=== PATIENT | female | born 1990 | race African-American/Black ===

== ENCOUNTER 2019-03-24 15:48 | Inpatient (IN) | payer OTHER ==
[2019-03-24 19:42] VITALS: BMI 23.8
--- NOTE | 2019-03-24 21:24 | HP ---
COWS - Scale Resting Pulse: 0= [place] 80 or Below Sweatin= Chills/Flushing Restless Observation: 0= Sits Still Pupil Size: 1= Pupils >than Normal Bone or Joint Aches: 4=Acute Joint/Muscle Pain Runny Nose/ Eye Tearin= Runny Nose/Eyes GI Upset > 30mins: 3= Vomiting/Diarrhea (no vomiting, diarrhea x 3) Tremor Observation: 2= Slight Tremor Visible Yawning Observation: 1= 1-2x During Session Anxiety or Irritability: 2=Irritable/Anxious Goose Flesh Skin: 3=Piloerection COWS Score: 19 CIWA Score - Admission Criteria OASAS Guidelines: Admission for Medically Managed Detox: Requires at least one of the followin. CIWA greater than 12 2. Seizures within the past 24 hours 3. Delirium tremens within the past 24 hours 4. Hallucinations within the past 24 hours 5. Acute intervention needed for co occurring medical disorder 6. Acute intervention needed for co occurring psychiatric disorder 7. Severe withdrawal that cannot be handled at a lower level of care (continued vomiting, continued diarrhea, abnormal vital signs) requiring intravenous medication and/or fluids 8. Admission [facility] Chief Complaint: Heroin withdrawal symptoms Allergies/Adverse Reactions: Allergies Allergy/AdvReac Type Severity Reaction Status Date / Time [place] And Derivatives Allergy Intermediate Swelling Verified 02/13/16 20:38 mushroom Allergy Intermediate Hives Verified 02/13/16 20:38 History of Present Illness: 28 years old female with 2 years of heroin dependence is seeking admission to detox. Patient has been in multiple detox programs, last at Counts include 234 beds at the [facility]. She has medical history of Seizures, anemia, depression and anxiety. she reports suicide attempt at age 25 years and denies suicidal ideation at this time - Ebola screening Have you traveled outside of the country in the last 21 days: No (N) Have you had contact with anyone from an Ebola affected area: No Do you have a fever: No - Review of Systems Constitutional: Chills, Loss of Appetite, Changes in sleep EENT: reports: Sinus Pressure Respiratory: reports: No Symptoms reported Cardiac: reports: No Symptoms Reported GI: reports: Diarrhea, Nausea, Poor Appetite, Poor Fluid Intake, Vomiting, Abdominal cramping : reports: No Symptoms Reported Musculoskeletal: reports: Back Pain, Joint Pain, Muscle Pain Integumentary: reports: Dryness, Flushing Neuro: reports: Headache, Tremors Endocrine: reports: No Symptoms Reported Hematology: reports: No Symptoms Reported Psychiatric: reports: No Sypmtoms Reported, Anxious, Depressed Other Systems: Reviewed and Negative Patient History - Patient Medical History Hx Anemia: Yes (Not on medication) Hx Asthma: No Hx Chronic Obstructive Pulmonary Disease (COPD): No Hx Cancer: No Hx Cardiac Disorders: No Hx Congestive Heart Failure: No Hx Hypertension: No Hx Hypercholesterolemia: No Hx Pacemaker: No HX Cerebrovascular Accident: No Hx Seizures: Yes (last episode 2 days ago- Keppra, Dilantin, Gabapentin) Hx Dementia: No Hx Diabetes: No Hx Gastrointestinal Disorders: No Hx Liver Disease: No Hx Genitourinary Disorders: No Hx Sexually Transmitted Disorders: No Hx Renal Disease (ESRD): No Hx Thyroid Disease: No Hx Human Immunodeficiency Virus (HIV): No Hx Hepatitis C: No Hx Depression: Yes (Not on medication ) Hx Suicide Attempt: Yes (cut wrist yesterday. Denies suicidal ideation at this t8ime) Hx Bipolar Disorder: Yes (Not on mjedication) Hx Schizophrenia: No Other Medical History: Anxiety -Not on medication - Patient Surgical History Past Surgical History: Yes Hx Neurologic Surgery: No Hx Cataract Extraction: No Hx Cardiac Surgery: No Hx Lung Surgery: No Hx Breast Surgery: No Hx Breast Biopsy: No Hx Abdominal Surgery: No Hx Appendectomy: No Hx Cholecystectomy: No Hx Genitourinary Surgery: No Hx Section: No Hx Orthopedic Surgery: Yes (right shoulder and back) Hx Hysterectomy: No Anesthesia Reaction: No - PPD History Previous Implant?: Yes Documented Results: Negative w/proof Implanted On Prior [facility] Admission?: Yes Date: 02/15/16 PPD to be Administered?: Yes - Reproductive History Patient is a Female of Child Bearing Age (11 -55 yrs old): Yes Last Menstrual Period: 02/28/19 Patient : No - Smoking Cessation Smoking history: Current every day smoker Have you smoked in the past 12 months: Yes Aproximately how many cigarettes per day: 10 Hx Chewing Tobacco Use: No Initiated information on smoking cessation: Yes 'Breaking Loose' booklet given: 03/24/19 - Substance & Tx. History Hx Alcohol Use: No Hx Substance Use: Yes Substance Use Type: Cocaine, Heroin, Marijuana, Opiates - Substances abused Other Other (specify): percocet Substance route: Oral Frequency: Daily Amount used: 5 tab of 10 mg Age of first use: 17 Date of last use: 03/23/19 Heroin Other (specify): sniff Frequency: Daily Amount used: 1 to2 Age of first use: 26 Date of last use: 03/23/19 Alcohol Substance route: Oral Frequency: Daily Amount used: 1 beer Age of first use: 15 Date of last use: 03/23/19 Family Disease History - Family Disease History Family Disease History: Diabetes: Grandparent (asthma), Heart Disease: Grandparent, Father (asthma), Mother, Respiratory: Grandparent, Father Admission Physical Exam [facility] - Vital Signs Vital Signs: Vital Signs - 24 hr 03/24/19 19:27 Temperature 98.1 F Pulse Rate 64 Respiratory 19 Rate Blood Pressure 139/84 - Physical General Appearance: Yes: Moderate Distress, Tremorous, Irritable, Anxious HEENTM: Yes: Normal ENT Inspection Respiratory: Yes: Lungs Clear, Normal Breath Sounds, No Respiratory Distress Neck: Yes: Supple Breast: Yes: Breast Exam Deferred Cardiology: Yes: Regular Rhythm, Regular Rate Abdominal: Yes: Normal Bowel Sounds, Soft Genitourinary: Yes: Within Normal Limits Back: Yes: Normal Inspection Musculoskeletal: Yes: Back pain, Muscle Pain Extremities: Yes: Tremors Neurological: Yes: Alert, Normal Mood/Affect Integumentary: Yes: Warm Lymphatic: Yes: Within Normal Limits - Diagnostic (1) Seizures Current Visit: Yes Status: Chronic (2) Nicotine dependence Current Visit: No Status: Chronic Qualifiers: Nicotine product type: cigarettes Substance use status: uncomplicated Qualified Code(s): F17.210 - Nicotine dependence, cigarettes, uncomplicated (3) Opioid dependence with withdrawal Current Visit: Yes Status: Chronic (4) Anemia Current Visit: Yes Status: Acute Qualifiers: Anemia type: iron deficiency (5) Depression Current Visit: Yes Status: Chronic Qualifiers: Depression Type: unspecified Qualified Code(s): F32.9 - Major depressive disorder, single episode, unspecified (6) Anxiety Current Visit: Yes Status: Acute Cleared for Admission [facility] - Detox or Rehab [facility] Level of Care: Medically Managed Detox Regimen/Protocol: Methadone Breathalyzer - Breathalyzer Breathalyzer: 0 Urine Drug Screen - Test Device Lot number: [id number] Expiration date: 12/12/20 - Control Is test valid?: Yes - Results Drug screen NEGATIVE: No Urine drug screen results: THC-Marijuana, FEN-Fentanyl, MOP-Opiates, OXY- Oxycodone, MTD-Methadone Inpatient Rehab Admission - Rehab Decision to Admit Inpatient rehab admission?: No
[2019-03-24] MEDS ORDERED: cloNIDine HCL 0.1 MG TABLET PO PRN (21:36)
[2019-03-24] MEDS ORDERED: IBUPROFEN 400 MG TABLET (FP) PO PRN (21:36)
[2019-03-24] MEDS ORDERED: ACETAMINOPHEN 325 MG TABLET (FP) PO PRN ×2 (21:36)
[2019-03-24] MEDS ORDERED: hydrOXYzine PAMOATE 25 MG CAPSULE (FP) PO PRN (21:36)
[2019-03-24] MEDS ORDERED: METHOCARBAMOL 500 MG TABLET PO PRN (21:36)
[2019-03-24] MEDS ORDERED: MAGNESIUM HYDROX 2400MG/30ML ORAL SUSPENSION 30 ML CUP PO PRN (21:36)
[2019-03-24] MEDS ORDERED: MAG HYDROX/AL HYDROX/SIMETH 30 ML UNIT-DOSE CUP PO PRN (21:36)
[2019-03-24] MEDS ORDERED: BISMUTH SUBSALICYLATE 524 MG/30 ML UD PO PRN (21:36)
[2019-03-24] MEDS ORDERED: MAGNESIUM CITRATE 300 ML BOTTLE PO PRN (21:36)
[2019-03-24] MEDS ORDERED: MENTHOL/PHENOL 1 EACH UD MM PRN (21:36)
[2019-03-24] MEDS ORDERED: METHADONE HCL 10 MG TABLET (FOR DETOX USE ONLY) PO ONE (22:15)
[2019-03-24] MEDS: GABAPENTIN 400 MG CAPSULE (FP) PO SCH (22:46)
[2019-03-24] MEDS: PHENYTOIN NA EXTENDED 100 MG CAPSULE (FP) PO SCH (22:46)
[2019-03-24] MEDS: THIAMINE HCL 100 MG TABLET (FP) PO SCH (22:47)
[2019-03-24] MEDS: NICOTINE POLACRILEX 2 MG GUM BUC PRN (23:37)
[2019-03-25] MEDS: GABAPENTIN 400 MG CAPSULE (FP) PO SCH ×3 (06:53→22:03)
[2019-03-25] MEDS ORDERED: METHADONE HCL 5 MG TABLET (FOR DETOX USE ONLY) ONE (09:18)
[2019-03-25] MEDS ORDERED: METHADONE HCL 10 MG TABLET (FOR DETOX USE ONLY) ONE (09:18)
[2019-03-25] MEDS ORDERED: METHADONE (DETOX) 20 MG, METHADONE (DETOX) 5 MG PO ONE (10:00)
[2019-03-25] MEDS: PHENYTOIN NA EXTENDED 100 MG CAPSULE (FP) PO SCH ×2 (10:37→22:03)
[2019-03-25] MEDS: PRENATAL VITAMINS W/ FOLIC ACID TABLET (FP) PO SCH (10:38)
[2019-03-25] MEDS: NICOTINE 14 MG/24 HOURS TOPICAL PATCH TD SCH (10:39)
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
--- NOTE | 2019-03-25 11:34 | EKG ---
Test Reason : Blood Pressure : / mmHG Vent. Rate : 041 BPM Atrial Rate : 041 BPM P-R Int : 134 ms QRS Dur : 086 ms QT Int : 452 ms P-R-T Axes : 068 037 -10 degrees QTc Int : 372 ms MARKED SINUS BRADYCARDIA T WAVE ABNORMALITY, CONSIDER ANTERIOR ISCHEMIA ABNORMAL ECG NO PREVIOUS ECGS AVAILABLE Confirmed by QAMAR DEE MD ([id number]) on 03/25/2019 11:34:02 AM Referred By: Confirmed By:QAMAR DEE MD
--- NOTE | 2019-03-25 11:43 | PN ---
[facility] COWS - Scale Resting Pulse: 0= [place] 80 or Below Sweatin=Flushed/Facial Moisture Restless Observation: 1= Difficult to Sit Still Pupil Size: 0= Normal to Room Light Bone or Joint Aches: 2= Severe Diffuse Aches Runny Nose/ Eye Tearin= Nasal Congestion GI Upset > 30mins: 1= Stomach Cramp Tremor Observation of Outstretched Hands: 2= Slight Tremor Visible Yawning Observation: 2= >3x During Session Anxiety or Irritability: 2=Irritable/Anxious Goose Flesh Skin: 0=Smooth Skin COWS Score: 13 [facility] Progress Note (SOAP) Subjective: chills sweats body aches interrupted sleep shakes anxiety Objective: 03/25/19 11:42 Vital Signs Temperature 98.2 F 03/25/19 09:45 Pulse Rate 57 L 03/25/19 09:45 Respiratory Rate 18 03/25/19 09:45 Blood Pressure 133/83 03/25/19 09:45 O2 Sat by Pulse Oximetry (%) Laboratory Tests 03/24/19 20:47 POC Urine HCG, Qual Negative pending labs aaox3 ambulating no acute distress Assessment: 03/25/19 11:43 withdrawal sx Plan: continue detox increase fluids pending labs
[2019-03-25 12:32] LABS: HEMOGLOBIN 11.5 GM/dL (10.7-15.3); MCH 26.5 pg (25.7-33.7); MCHC 32.8 g/dl (32.0-36.0); MEAN CELL VOLUME 80.9 fl (80-96); MEAN PLT VOLUME 8.7 fl (7.5-11.1); PLATELET COUNT 340 K/MM3 (134-434); RBC 4.33 M/mm3 (3.60-5.2); RDW 14.5 % (11.6-15.6); WHITE BLOOD COUNT 7.2 K/mm3 (4.0-10.0)
[2019-03-25 12:43] LABS: ALBUMIN 3.8 g/dl (3.4-5.0); BILIRUBIN,TOTAL 0.4 mg/dL (0.2-1); BLOOD UREA NITROGEN 4.2 mg/dL (7-18); CALCIUM 9.3 mg/dL (8.5-10.1); CREATININE 0.6 mg/dL (0.55-1.3); POTASSIUM 3.6 mmol/L (3.5-5.1); TOT PROT 7.3 g/dl (6.4-8.2)
[2019-03-25] MEDS: levETIRAcetam XR 500 MG TAB PO SCH (12:55)
[2019-03-25] MEDS: diazePAM 5 MG TABLET PO PRN ×3 (15:11→23:49)
[2019-03-25] MEDS ORDERED: SUVOREXANT 10 MG TABLET PO PRN (22:00)
[2019-03-25] MEDS: THIAMINE HCL 100 MG TABLET (FP) PO SCH (22:03)
[2019-03-25] MEDS: MELATONIN 5 MG TABLETS PO PRN (22:05)
[2019-03-26] MEDS: GABAPENTIN 400 MG CAPSULE (FP) PO SCH ×3 (07:02→22:20)
[2019-03-26] MEDS ORDERED: METHADONE HCL 10 MG TABLET (FOR DETOX USE ONLY) PO ONE (10:00)
[2019-03-26] MEDS: levETIRAcetam XR 500 MG TAB PO SCH (10:06)
[2019-03-26] MEDS: PHENYTOIN NA EXTENDED 100 MG CAPSULE (FP) PO SCH ×2 (10:06→22:20)
[2019-03-26] MEDS: NICOTINE 14 MG/24 HOURS TOPICAL PATCH TD SCH (10:07)
[2019-03-26] MEDS: PRENATAL VITAMINS W/ FOLIC ACID TABLET (FP) PO SCH (10:07)
[2019-03-26] MEDS: diazePAM 5 MG TABLET PO PRN ×2 (10:39→22:19)
--- NOTE | 2019-03-26 11:14 | PN ---
B[facility] Progress Note Note: Patient reports sleeping poorly despite taking Belsomra 10 mg at bedtime. Will increase medication dosage to 15 mg/hs
--- NOTE | 2019-03-26 13:22 | PN ---
[facility] COWS - Scale Resting Pulse: 0= [place] 80 or Below Sweatin= Chills/Flushing Restless Observation: 1= Difficult to Sit Still Pupil Size: 0= Normal to Room Light Bone or Joint Aches: 2= Severe Diffuse Aches Runny Nose/ Eye Tearin= Nasal Congestion GI Upset > 30mins: 0= None Tremor Observation of Outstretched Hands: 1= Tremor [place], Not Seen Yawning Observation: 1= 1-2x During Session Anxiety or Irritability: 1=Feels Anxious/Irritable Goose Flesh Skin: 0=Smooth Skin COWS Score: 8 [facility] Progress Note (SOAP) Subjective: little sweats little shakes feeling better anxiety Objective: 03/26/19 13:22 Vital Signs Temperature 98.1 F 03/26/19 09:37 Pulse Rate 61 03/26/19 09:37 Respiratory Rate 18 03/26/19 09:37 Blood Pressure 110/81 03/26/19 09:37 O2 Sat by Pulse Oximetry (%) Laboratory Tests 03/24/19 03/25/19 03/25/19 20:47 09:00 09:00 WBC 7.2 RBC 4.33 Hgb 11.5 Hct 35.0 MCV 80.9 MCH 26.5 MCHC 32.8 RDW 14.5 Plt Count 340 MPV 8.7 D Sodium Potassium Chloride Carbon Dioxide Anion Gap BUN Creatinine Est GFR (CKD-EPI)AfAm Est GFR (CKD-EPI)NonAf Random Glucose Calcium Total Bilirubin AST ALT Alkaline Phosphatase Total Protein Albumin POC Urine HCG, Qual Negative Phenytoin 2.6 RPR Titer HIV 1&2 Antibody Screen HIV P24 Antigen 03/25/19 03/25/19 03/25/19 09:00 09:00 09:00 WBC RBC Hgb Hct MCV MCH MCHC RDW Plt Count MPV Sodium 139 Potassium 3.6 Chloride 101 Carbon Dioxide 31 Anion Gap 8 BUN 4.2 L Creatinine 0.6 Est GFR (CKD-EPI)AfAm 141.76 Est GFR (CKD-EPI)NonAf 122.31 Random Glucose 74 Calcium 9.3 Total Bilirubin 0.4 AST 13 L ALT 12 L Alkaline Phosphatase 62 Total Protein 7.3 Albumin 3.8 POC Urine HCG, Qual Phenytoin RPR Titer Nonreactive HIV 1&2 Antibody Screen Negative HIV P24 Antigen Negative labs noted aaox3 ambulating no acute distress Assessment: 03/26/19 13:22 withdrawals Plan: continue detox increase fluids
[2019-03-26] MEDS: SUVOREXANT 15 MG TABLET PO PRN (22:18)
[2019-03-26] MEDS: THIAMINE HCL 100 MG TABLET (FP) PO SCH (22:20)
[2019-03-27] MEDS: GABAPENTIN 400 MG CAPSULE (FP) PO SCH ×3 (06:44→22:29)
[2019-03-27] MEDS ORDERED: METHADONE HCL 10 MG TABLET (FOR DETOX USE ONLY) ONE (09:17)
[2019-03-27] MEDS ORDERED: METHADONE HCL 5 MG TABLET (FOR DETOX USE ONLY) ONE (09:18)
[2019-03-27] MEDS ORDERED: METHADONE (DETOX) 10 MG, METHADONE (DETOX) 5 MG PO ONE (10:00)
[2019-03-27] MEDS: PRENATAL VITAMINS W/ FOLIC ACID TABLET (FP) PO SCH (10:09)
[2019-03-27] MEDS: levETIRAcetam XR 500 MG TAB PO SCH (10:10)
[2019-03-27] MEDS: PHENYTOIN NA EXTENDED 100 MG CAPSULE (FP) PO SCH ×2 (10:10→22:29)
[2019-03-27] MEDS: NICOTINE 14 MG/24 HOURS TOPICAL PATCH TD SCH (10:10)
[2019-03-27] MEDS: NICOTINE POLACRILEX 2 MG GUM BUC PRN ×2 (10:10→22:40)
[2019-03-27] MEDS: diazePAM 5 MG TABLET PO PRN ×4 (10:12→22:30)
--- NOTE | 2019-03-27 13:56 | PN ---
BHS COWS - Scale Resting Pulse: 0= [place] 80 or Below Sweatin= Chills/Flushing Restless Observation: 1= Difficult to Sit Still Pupil Size: 0= Normal to Room Light Bone or Joint Aches: 1= Mild Discomfort Runny Nose/ Eye Tearin= None GI Upset > 30mins: 0= None Tremor Observation of Outstretched Hands: 1= Tremor [place], Not Seen Yawning Observation: 1= 1-2x During Session Anxiety or Irritability: 1=Feels Anxious/Irritable Goose Flesh Skin: 0=Smooth Skin COWS Score: 6 [facility] Progress Note (SOAP) Subjective: sweats anxiety Objective: 03/27/19 13:55 Vital Signs Temperature 97.3 F L 03/27/19 09:42 Pulse Rate 68 03/27/19 09:42 Respiratory Rate 17 03/27/19 09:42 Blood Pressure 105/80 03/27/19 09:42 O2 Sat by Pulse Oximetry (%) aaox3 ambulating no acute distress Assessment: 03/27/19 13:56 mild withdrawals Plan: continue detox
[2019-03-27] MEDS: THIAMINE HCL 100 MG TABLET (FP) PO SCH (22:29)
[2019-03-27] MEDS: MELATONIN 5 MG TABLETS PO PRN (22:32)
[2019-03-28] MEDS: GABAPENTIN 400 MG CAPSULE (FP) PO SCH ×3 (06:29→22:37)
[2019-03-28] MEDS: diazePAM 5 MG TABLET PO PRN ×2 (06:30→10:42)
[2019-03-28] MEDS ORDERED: METHADONE HCL 10 MG TABLET (FOR DETOX USE ONLY) PO ONE (10:00)
[2019-03-28] MEDS: PHENYTOIN NA EXTENDED 100 MG CAPSULE (FP) PO SCH ×2 (10:41→22:37)
[2019-03-28] MEDS: levETIRAcetam XR 500 MG TAB PO SCH (10:41)
[2019-03-28] MEDS: PRENATAL VITAMINS W/ FOLIC ACID TABLET (FP) PO SCH (10:41)
[2019-03-28] MEDS: NICOTINE 14 MG/24 HOURS TOPICAL PATCH TD SCH (10:42)
[2019-03-28] MEDS: NICOTINE POLACRILEX 2 MG GUM BUC PRN (10:42)
--- NOTE | 2019-03-28 13:19 | PN ---
S COWS - Scale Resting Pulse: 0= [place] 80 or Below Sweatin= No chills or Flushing Restless Observation: 1= Difficult to Sit Still Pupil Size: 0= Normal to Room Light Bone or Joint Aches: 0= None Runny Nose/ Eye Tearin= None GI Upset > 30mins: 0= None Tremor Observation of Outstretched Hands: 0= None Yawning Observation: 1= 1-2x During Session Anxiety or Irritability: 2=Irritable/Anxious Goose Flesh Skin: 0=Smooth Skin COWS Score: 4 [facility] Progress Note (SOAP) Subjective: c/o anxiety and mild chills. Objective: 03/28/19 13:21 Vital Signs 03/28/19 03/28/19 07:35 09:28 Temperature 97.7 F 97.9 F Pulse Rate 54 L 53 L Respiratory 18 18 Rate Blood Pressure 101/79 105/64 Lab Results WBC 7.2 K/mm3 (4.0-10.0) 03/25/19 09:00 RBC 4.33 M/mm3 (3.60-5.2) 03/25/19 09:00 Hgb 11.5 GM/dL (10.7-15.3) 03/25/19 09:00 Hct 35.0 % (32.4-45.2) 03/25/19 09:00 MCV 80.9 fl (80-96) 03/25/19 09:00 MCHC 32.8 g/dl (32.0-36.0) 03/25/19 09:00 RDW 14.5 % (11.6-15.6) 03/25/19 09:00 Plt Count 340 K/MM3 (134-434) 03/25/19 09:00 Sodium 139 mmol/L (136-145) 03/25/19 09:00 Potassium 3.6 mmol/L (3.5-5.1) 03/25/19 09:00 Chloride 101 mmol/L (98-107) 03/25/19 09:00 Carbon Dioxide 31 mmol/L (21-32) 03/25/19 09:00 Anion Gap 8 MMOL/L (8-16) 03/25/19 09:00 BUN 4.2 mg/dL (7-18) L 03/25/19 09:00 Creatinine 0.6 mg/dL (0.55-1.3) 03/25/19 09:00 Random Glucose 74 mg/dL (74-106) 03/25/19 09:00 Calcium 9.3 mg/dL (8.5-10.1) 03/25/19 09:00 Labs noted. Assessment: 03/28/19 13:22 AOX3, in no acute respiratory distress. Full ROM, ambulating in the unit. mild withdrawal symptoms. 03/28/19 13:22 Plan: continue detox.
[2019-03-28] MEDS: SUVOREXANT 15 MG TABLET PO PRN (22:37)
[2019-03-28] MEDS: THIAMINE HCL 100 MG TABLET (FP) PO SCH (22:38)
[2019-03-29] MEDS: GABAPENTIN 400 MG CAPSULE (FP) PO SCH (06:00)
[2019-03-29] MEDS ORDERED: METHADONE HCL 5 MG TABLET (FOR DETOX USE ONLY) PO ONE (06:00)
[2019-03-29] MEDS: NICOTINE POLACRILEX 2 MG GUM BUC PRN (06:02)
[2019-03-29 08:25] VITALS: BP 90/51; PULSE 52; TEMP 97.9
--- NOTE | 2019-03-29 13:23 | DS ---
[facility] Detox Discharge Summary Admission Date: 03/24/19 Discharge Date: 03/29/19 - History Present History: Opioid Dependence - Physical Exam Results Vital Signs: Vital Signs Temperature 97.9 F 03/29/19 08:25 Pulse Rate 52 L 03/29/19 08:25 Respiratory Rate 17 03/29/19 08:25 Blood Pressure 90/51 L 03/29/19 08:25 O2 Sat by Pulse Oximetry (%) Pertinent Admission Physical Exam Findings: alert and oriented x 3 skin warm and dry +perrla, eoms intact bl neck supple no jvd ext full rom, amb ad charles - Treatment Hospital Course: Detox Protocol Followed, Detoxed Safely, Responded well, Discharged Condition Good, Rehab Referral Accepted Patient has Accepted a Rehab Referral to: [facility] - Medication Discharge Medications: Ambulatory Orders Gabapentin [Neurontin -] 800 mg PO Q8H 02/13/16 levETIRAcetam [Keppra Xr -] 1,000 mg PO DAILY 02/13/16 Phenytoin Na Extended [Dilantin -] 100 mg PO BID 03/24/19 - AMA Did Patient Leave Against Medical Advice: No
== END 2019-03-29 08:50 | disposition home or self-care (01) | DRG 773 ==
LOC: YASAS 15:48 → Y6N 22:03
PROVIDERS: ADMIT Surgery; ATTEND Surgery
PROC: HZ2ZZZZ Detoxification Services for Substance Abuse Treatment (ICD-10-PCS; principal; 2019-03-24)
DX: F11.23 Opioid dependence with withdrawal (principal); F17.210 Nicotine dependence, cigarettes, uncomplicated; F19.24 Other psychoactive substance dependence with psychoactive substance-induced mood disorder; F19.282 Other psychoactive substance dependence with psychoactive substance-induced sleep disorder; F41.9 Anxiety disorder, unspecified; F32.9 Major depressive disorder, single episode, unspecified; G40.909 Epilepsy, unspecified, not intractable, without status epilepticus
CPT/HCPCS: 36415; 80053; 80177; 80185; 81025; 85027; 86480; 86593; 87389; 93005; 93010

== ENCOUNTER 2019-04-13 16:04 | Inpatient (IN) | payer OTHER ==
[2019-04-13 17:44] VITALS: BMI 23.6
--- NOTE | 2019-04-13 19:39 | HP ---
COWS - Scale Resting Pulse: 0= [place] 80 or Below Sweatin=Flushed/Facial Moisture Restless Observation: 3= Extraneous Movement Pupil Size: 2= Moderately Dilated (Pupils = 5 mm) Bone or Joint Aches: 0= None Runny Nose/ Eye Tearin= Nasal Congestion GI Upset > 30mins: 0= None Tremor Observation: 2= Slight Tremor Visible Yawning Observation: 1= 1-2x During Session Anxiety or Irritability: 2=Irritable/Anxious Goose Flesh Skin: 0=Smooth Skin COWS Score: 13 CIWA Score - Admission Criteria OAS Guidelines: Admission for Medically Managed Detox: Requires at least one of the followin. CIWA greater than 12 2. Seizures within the past 24 hours 3. Delirium tremens within the past 24 hours 4. Hallucinations within the past 24 hours 5. Acute intervention needed for co occurring medical disorder 6. Acute intervention needed for co occurring psychiatric disorder 7. Severe withdrawal that cannot be handled at a lower level of care (continued vomiting, continued diarrhea, abnormal vital signs) requiring intravenous medication and/or fluids 8. Admitting History and Physical - Past Medical History ...LMP: 02/28/19 - Smoking History Smoking history: Current every day smoker Have you smoked in the past 12 months: Yes Aproximately how many cigarettes per day: 10 - Alcohol/Substance Use Hx Alcohol Use: No Admission ROS [facility] [employer] [facility] Chief Complaint: "Having withdrawals from opiates. I need detox and rehab" Allergies/Adverse Reactions: Allergies Allergy/AdvReac Type Severity Reaction Status Date / Time Schley And Derivatives Allergy Intermediate Swelling Verified 04/13/19 17:33 mushroom Allergy Intermediate Hives Verified 04/13/19 17:33 History of Present Illness: 28 yo presents w/ alcohol and opioid withdrawal seeking detox and then rehab. Discharged from detox 15 days ago and relapses while waiting to get into a rehab. UTox: THC/CAROL/FEN/MOP/OXY/ GUEVARA: 0.0 HCG: Neg TB Gold (QFT) 03/25/19 - neg RPR 03/25/19 - neg EKG 911/ - Reviewed. Hx: seizures - last 1 week ago. Denies blackouts or overdoses. Alcohol use began at age 15. Current use is 1 - 12 oz beer daily Heroin use began at age 24. Current use is 4-5 bags daily. Illicit Percocet use began at age 15. Currently taking minimum 12 tabs of - 10 mg pills daily. Cocaine use began at age [age]. Current use is approx 3-4 days/week. Marijuana use began at age 14. Current use daily. Nicotine use began at age 18. Smokes approx 2-5 cig/day. PMHx: Epilepsy, heart murmur MHHx: Anxiety, Depression. Denies thoughts of harming self or others. SHx: Lives w/ a friend. Unemployed. Patient Name: Jaimie Gifford Date: 1990 Address: [address] [place], [place] [id number] [place] [id number] Sex: Female Rx Written Rx Dispensed Drug Quantity Days Supply Prescriber Name 04/23/2018 04/29/2018 oxycodone-acetaminophen 5-325 mg tab 90 30 Chaitanya Laurent M Search Terms: Jaimie Gifford, 1990 Search Date: 04/13/2019 07:45:44 PM States Searched: [place], [place], [place], [place], [place], [place], [place] The Drug Utilization Report below displays the controlled substance prescriptions, if any, that were dispensed in the indicated state(s). The information displayed on this report is compiled from requests submitted to other states' PMPs, and accurately reflects the information as returned by them. Blank strong indicate data not provided by other state. This report was requested by: Funmilayo Boles | Reference #: [id number] There are no results for the search terms that you entered. Exam Limitations: No Limitations - Ebola screening Have you traveled outside of the country in the last 21 days: No Have you had contact with anyone from an Ebola affected area: No Have you been sick,other than usual withdrawal symptoms: No Do you have a fever: No - Review of Systems Constitutional: Chills, Diaphoresis, Changes in sleep (Difficulty falling and staying asleep) EENT: reports: Nose Congestion Respiratory: reports: No Symptoms reported Cardiac: reports: Other (hx: murmur) GI: reports: No Symptoms Reported : reports: No Symptoms Reported Musculoskeletal: reports: Back Pain (Chronic low back pain - pain increases when cold. Denies pain at this time.) Integumentary: reports: No Symptoms Reported Neuro: reports: Seizure Endocrine: reports: Increased Thirst Hematology: reports: No Symptoms Reported Psychiatric: reports: Judgement Intact, Orientated x3, Anxious, Depressed ( Denies thoughts of harming self or others.) Patient History - Patient Medical History Hx Anemia: Yes (Not on medication) Hx Asthma: No Hx Chronic Obstructive Pulmonary Disease (COPD): No Hx Cancer: No Hx Cardiac Disorders: No Hx Congestive Heart Failure: No Hx Hypertension: No Hx Hypercholesterolemia: No Hx Pacemaker: No HX Cerebrovascular Accident: No Hx Seizures: Yes (last episode 2 days ago- Keppra, Dilantin, Gabapentin) Hx Dementia: No Hx Diabetes: No Hx Gastrointestinal Disorders: No Hx Liver Disease: No Hx Genitourinary Disorders: No Hx Sexually Transmitted Disorders: No Hx Renal Disease (ESRD): No Hx Thyroid Disease: No Hx Human Immunodeficiency Virus (HIV): No Hx Hepatitis C: No Hx Depression: Yes (Not on medication ) Hx Suicide Attempt: Yes (cut wrist yesterday. Denies suicidal ideation at this t8ime) Hx Bipolar Disorder: Yes (Not on mjedication) Hx Schizophrenia: No - Patient Surgical History Past Surgical History: Yes Hx Neurologic Surgery: No Hx Cataract Extraction: No Hx Cardiac Surgery: No Hx Lung Surgery: No Hx Breast Surgery: No Hx Breast Biopsy: No Hx Abdominal Surgery: No Hx Appendectomy: No Hx Cholecystectomy: No Hx Genitourinary Surgery: No Hx Section: No Hx Orthopedic Surgery: Yes (right shoulder and back) Hx Hysterectomy: No Anesthesia Reaction: No - PPD History Previous Implant?: No (TB Gold (QFT) 03/25/19) Documented Results: Negative w/proof Implanted On Prior [facility] Admission?: Yes Date: 03/25/19 (TB Gold (QFT)) PPD to be Administered?: No - Reproductive History Patient is a Female of Child Bearing Age (11 -55 yrs old): Yes Last Menstrual Period: 03/29/19 Patient : No - Smoking Cessation Smoking history: Current every day smoker Have you smoked in the past 12 months: Yes Aproximately how many cigarettes per day: 5 Hx Chewing Tobacco Use: No Initiated information on smoking cessation: Yes 'Breaking Loose' booklet given: 04/13/19 - Substance & Tx. History Hx Alcohol Use: Yes Hx Substance Use: Yes Substance Use Type: Alcohol, Cocaine, Heroin, Marijuana, Opiates Hx Substance Use Treatment: Yes (detox, rehab) - Substances abused Other Other (specify): percocet Substance route: Oral Frequency: Daily Amount used: 5 tab of 10 mg Age of first use: 17 Date of last use: 04/12/19 Heroin Other (specify): sniff Frequency: Daily Amount used: 1 to2 Age of first use: 26 Date of last use: 04/13/19 Alcohol Substance route: Oral Frequency: Daily Amount used: 1 beer Age of first use: 15 Date of last use: 04/12/19 Admission Physical Exam [facility] - Vital Signs Vital Signs: Vital Signs - 24 hr 04/13/19 17:35 Temperature 98.1 F Pulse Rate 68 Respiratory 18 Rate Blood Pressure 135/93 - Physical General Appearance: Yes: Nourished, Mild Distress, Tremorous, Sweating ( Increased facial mositure), Anxious HEENTM: Yes: EOMI, Hearing grossly Normal, Normocephalic, Normal Voice, NANCI ( Pupils = 5 mm), Pharynx Normal, Tm's normal Respiratory: Yes: Lungs Clear (PUlse ox = 99 %), Normal Breath Sounds, No Respiratory Distress Neck: Yes: No masses,lesions,Nodules, Supple Breast: Yes: Breast Exam Deferred Cardiology: Yes: Regular Rhythm, S1, S2, Bradycardia Abdominal: Yes: Non Tender, Flat, Soft, Increased Bowel Sounds Genitourinary: Yes: Within Normal Limits Back: Yes: Normal Inspection Musculoskeletal: Yes: full range of Motion, Gait Steady Extremities: Yes: Normal Capillary Refill, Normal Range of Motion, Tremors Neurological: Yes: bean roaster II-XII NML intact, Fully Oriented, Alert, Motor Strength 5/5 Integumentary: Yes: Normal Color, Warm, Diaphoresis (Increased facial mositure) Lymphatic: Yes: Within Normal Limits - Diagnostic (1) History of seizures Current Visit: Yes Status: Chronic (2) Cocaine dependence, uncomplicated Current Visit: Yes Status: Chronic (3) Cannabis dependence, uncomplicated Current Visit: Yes Status: Chronic (4) Cardiac murmur Current Visit: Yes Status: Chronic (5) Alcohol abuse Current Visit: Yes Status: Chronic (6) Opioid dependence with withdrawal Current Visit: Yes Status: Acute (7) Nicotine dependence Current Visit: Yes Status: Chronic Qualifiers: Nicotine product type: cigarettes Substance use status: uncomplicated Qualified Code(s): F17.210 - Nicotine dependence, cigarettes, uncomplicated Cleared for Admission [facility] - Detox or Rehab [facility] Level of Care: Medically Managed Detox Regimen/Protocol: Methadone Claeared for Rehab Admission: No Breathalyzer - Breathalyzer Breathalyzer: 0 Urine Drug Screen - Test Device Lot number: [id number] Expiration date: 12/12/20 - Control Is test valid?: Yes - Results Drug screen NEGATIVE: Yes Urine drug screen results: THC-Marijuana, CAROL-Cocaine, FEN-Fentanyl, MOP-Opiates , OXY-Oxycodone, BZO-Benzodiazepines Inpatient Rehab Admission - Rehab Decision to Admit Inpatient rehab admission?: No
[2019-04-13] MEDS ORDERED: ACETAMINOPHEN 325 MG TABLET (FP) PO PRN ×2 (20:09)
[2019-04-13] MEDS ORDERED: MAGNESIUM CITRATE 300 ML BOTTLE PO PRN (20:09)
[2019-04-13] MEDS ORDERED: BISMUTH SUBSALICYLATE 524 MG/30 ML UD PO PRN (20:09)
[2019-04-13] MEDS ORDERED: IBUPROFEN 400 MG TABLET (FP) PO PRN (20:09)
[2019-04-13] MEDS ORDERED: MAGNESIUM HYDROX 2400MG/30ML ORAL SUSPENSION 30 ML CUP PO PRN (20:09)
[2019-04-13] MEDS ORDERED: MENTHOL/PHENOL 1 EACH UD MM PRN (20:09)
[2019-04-13] MEDS ORDERED: MELATONIN 5 MG TABLETS PO PRN (20:09)
[2019-04-13] MEDS ORDERED: MAG HYDROX/AL HYDROX/SIMETH 30 ML UNIT-DOSE CUP PO PRN (20:09)
[2019-04-13] MEDS ORDERED: METHADONE HCL 10 MG TABLET (FOR DETOX USE ONLY) PO ONE (20:19)
[2019-04-13] MEDS: THIAMINE HCL 100 MG TABLET (FP) PO SCH (22:26)
[2019-04-13] MEDS: PHENYTOIN NA EXTENDED 100 MG CAPSULE (FP) PO SCH (22:26)
[2019-04-13] MEDS: MELATONIN 5 MG TABLETS PO PRN (22:26)
[2019-04-13] MEDS: GABAPENTIN 400 MG CAPSULE (FP) PO SCH (22:26)
[2019-04-13] MEDS ORDERED: METHADONE 20 MG, METHADONE 5 MG PO ONE (22:45)
[2019-04-13] MEDS ORDERED: METHADONE HCL 5 MG TABLET ONE (22:48)
[2019-04-13] MEDS ORDERED: METHADONE HCL 10 MG TABLET ONE (22:48)
[2019-04-14] MEDS: GABAPENTIN 400 MG CAPSULE (FP) PO SCH ×3 (05:48→22:35)
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
[2019-04-14] MEDS ORDERED: METHADONE HCL 10 MG TABLET (FOR DETOX USE ONLY) PO ONE (10:00)
[2019-04-14] MEDS: PHENYTOIN NA EXTENDED 100 MG CAPSULE (FP) PO SCH ×2 (10:12→22:35)
[2019-04-14] MEDS: PRENATAL VITAMINS W/ FOLIC ACID TABLET (FP) PO SCH (10:12)
[2019-04-14] MEDS: NICOTINE POLACRILEX 2 MG GUM BUC PRN (10:13)
[2019-04-14] MEDS: levETIRAcetam XR 500 MG TAB PO SCH (11:27)
[2019-04-14 12:15] LABS: HEMATOCRIT 36.8 % (32.4-45.2); HEMOGLOBIN 12.2 GM/dL (10.7-15.3); MCH 26.1 pg (25.7-33.7); MEAN CELL VOLUME 79.2 fl (80-96); MEAN PLT VOLUME 8.3 fl (7.5-11.1); PLATELET COUNT 418 K/MM3 (134-434); RBC 4.65 M/mm3 (3.60-5.2); RDW 14.2 % (11.6-15.6); WHITE BLOOD COUNT 7.7 K/mm3 (4.0-10.0)
[2019-04-14 12:54] LABS: ALBUMIN 3.9 g/dl (3.4-5.0); BILIRUBIN,TOTAL 0.6 mg/dL (0.2-1); BLOOD UREA NITROGEN 5.6 mg/dL (7-18); CALCIUM 9.2 mg/dL (8.5-10.1); CREATININE 0.8 mg/dL (0.55-1.3); POTASSIUM 3.9 mmol/L (3.5-5.1); TOT PROT 7.8 g/dl (6.4-8.2)
--- NOTE | 2019-04-14 13:31 | PN ---
BHS COWS - Scale Resting Pulse: 0= [place] 80 or Below Sweatin= Chills/Flushing Restless Observation: 1= Difficult to Sit Still Pupil Size: 0= Normal to Room Light Bone or Joint Aches: 2= Severe Diffuse Aches Runny Nose/ Eye Tearin= Runny Nose/Eyes GI Upset > 30mins: 1= Stomach Cramp Tremor Observation of Outstretched Hands: 1= Tremor [place], Not Seen Yawning Observation: 2= >3x During Session Anxiety or Irritability: 2=Irritable/Anxious Goose Flesh Skin: 0=Smooth Skin COWS Score: 12 BHS Progress Note (SOAP) Subjective: body aches sweats shakes body aches tired Objective: 04/14/19 13:32 Vital Signs Temperature 98.8 F 04/14/19 13:28 Pulse Rate 62 04/14/19 13:28 Respiratory Rate 16 04/14/19 13:28 Blood Pressure 106/64 04/14/19 13:28 O2 Sat by Pulse Oximetry (%) Laboratory Tests 04/13/19 04/14/19 04/14/19 18:39 08:45 08:45 WBC 7.7 RBC 4.65 Hgb 12.2 Hct 36.8 MCV 79.2 L MCH 26.1 MCHC 33.0 RDW 14.2 Plt Count 418 D MPV 8.3 Sodium Potassium Chloride Carbon Dioxide Anion Gap BUN Creatinine Est GFR (CKD-EPI)AfAm Est GFR (CKD-EPI)NonAf Random Glucose Calcium Total Bilirubin AST ALT Alkaline Phosphatase Total Protein Albumin POC Urine HCG, Qual Negative Phenytoin 2.6 04/14/19 08:45 WBC RBC Hgb Hct MCV MCH MCHC RDW Plt Count MPV Sodium 139 Potassium 3.9 Chloride 101 Carbon Dioxide 31 Anion Gap 7 L BUN 5.6 L Creatinine 0.8 Est GFR (CKD-EPI)AfAm 114.66 Est GFR (CKD-EPI)NonAf 98.93 Random Glucose 109 H Calcium 9.2 Total Bilirubin 0.6 AST 15 ALT 16 Alkaline Phosphatase 74 Total Protein 7.8 Albumin 3.9 POC Urine HCG, Qual Phenytoin labs noted aaox3 ambulating no acute distress Assessment: 04/14/19 13:32 withdrawal sx Plan: continue detox increase fluids
[2019-04-14] MEDS: THIAMINE HCL 100 MG TABLET (FP) PO SCH (22:35)
[2019-04-14] MEDS: SUVOREXANT 15 MG TABLET PO PRN (22:36)
[2019-04-15] MEDS: GABAPENTIN 400 MG CAPSULE (FP) PO SCH ×3 (06:58→21:19)
[2019-04-15] MEDS ORDERED: METHADONE HCL 10 MG TABLET (FOR DETOX USE ONLY) PO ONE (10:00)
[2019-04-15] MEDS: PHENYTOIN NA EXTENDED 100 MG CAPSULE (FP) PO SCH ×2 (10:19→21:20)
[2019-04-15] MEDS: PRENATAL VITAMINS W/ FOLIC ACID TABLET (FP) PO SCH (10:19)
[2019-04-15] MEDS: levETIRAcetam XR 500 MG TAB PO SCH (10:19)
--- NOTE | 2019-04-15 11:08 | PN ---
BHS COWS - Scale Resting Pulse: 0= [place] 80 or Below Sweatin= Chills/Flushing Restless Observation: 1= Difficult to Sit Still Pupil Size: 0= Normal to Room Light Bone or Joint Aches: 2= Severe Diffuse Aches Runny Nose/ Eye Tearin= Nasal Congestion GI Upset > 30mins: 0= None Tremor Observation of Outstretched Hands: 1= Tremor [place], Not Seen Yawning Observation: 1= 1-2x During Session Anxiety or Irritability: 1=Feels Anxious/Irritable Goose Flesh Skin: 0=Smooth Skin COWS Score: 8 BHS Progress Note (SOAP) Subjective: sweats tired agitation interrupted sleep Objective: 04/15/19 11:07 Vital Signs Temperature 98.1 F 04/15/19 09:28 Pulse Rate 53 L 04/15/19 09:28 Respiratory Rate 18 04/15/19 09:28 Blood Pressure 106/73 04/15/19 09:28 O2 Sat by Pulse Oximetry (%) Laboratory Tests 04/13/19 04/14/19 04/14/19 18:39 08:45 08:45 WBC 7.7 RBC 4.65 Hgb 12.2 Hct 36.8 MCV 79.2 L MCH 26.1 MCHC 33.0 RDW 14.2 Plt Count 418 D MPV 8.3 Sodium Potassium Chloride Carbon Dioxide Anion Gap BUN Creatinine Est GFR (CKD-EPI)AfAm Est GFR (CKD-EPI)NonAf Random Glucose Calcium Total Bilirubin AST ALT Alkaline Phosphatase Total Protein Albumin POC Urine HCG, Qual Negative Phenytoin 2.6 04/14/19 08:45 WBC RBC Hgb Hct MCV MCH MCHC RDW Plt Count MPV Sodium 139 Potassium 3.9 Chloride 101 Carbon Dioxide 31 Anion Gap 7 L BUN 5.6 L Creatinine 0.8 Est GFR (CKD-EPI)AfAm 114.66 Est GFR (CKD-EPI)NonAf 98.93 Random Glucose 109 H Calcium 9.2 Total Bilirubin 0.6 AST 15 ALT 16 Alkaline Phosphatase 74 Total Protein 7.8 Albumin 3.9 POC Urine HCG, Qual Phenytoin aaox3 lying in bed no acute distress labs noted Assessment: 04/15/19 11:08 withdrawals Plan: continue detox increase fluids
[2019-04-15] MEDS ORDERED: AMMONIUM LACTATE 12% LOTION 225 GM BOTTLE TP PRN (15:53)
[2019-04-15] MEDS ORDERED: COLLOIDAL OATMEAL 1 BAR EACH TP ONE (15:53)
[2019-04-15 17:44] LABS: EPI CELLS 33.5 /HPF (0-5/HPF); HYALINE CASTS 16 /lpf (0-8); PH,URINE 7.5 (5.0-8.0); URINE APPEARANCE CLOUDY; URINE BACTERIA 71.2 /hpf (NEGATIVE); URINE BILIRUBIN NEGATIVE (NEGATIVE); URINE COLOR YELLOW; URINE GLUCOSE (UA) NEGATIVE (NEGATIVE); URINE KETONE TRACE (NEGATIVE); URINE LEUK ESTERASE 1+ (NEGATIVE); URINE NITRITE NEGATIVE (NEGATIVE); URINE PROTEIN TRACE (NEGATIVE); URINE RBC 4 /hpf (0-4); URINE UROBILINOGEN 0.2 mg/dL (0.2-1.0); URINE WBC 4 /hpf (0-5)
[2019-04-15] MEDS: SUVOREXANT 15 MG TABLET PO PRN (21:18)
[2019-04-15] MEDS: clonazePAM 0.5 MG TABLET PO PRN (21:20)
[2019-04-15] MEDS: NICOTINE POLACRILEX 2 MG GUM BUC PRN (22:14)
[2019-04-15] MEDS: THIAMINE HCL 100 MG TABLET (FP) PO SCH (23:52)
[2019-04-16] MEDS: clonazePAM 0.5 MG TABLET PO PRN (06:43)
[2019-04-16] MEDS: GABAPENTIN 400 MG CAPSULE (FP) PO SCH ×3 (06:43→22:24)
[2019-04-16] MEDS ORDERED: METHADONE (DETOX) 10 MG, METHADONE (DETOX) 5 MG PO ONE (10:00)
--- NOTE | 2019-04-16 10:00 | PN ---
BHS COWS - Scale Resting Pulse: 0= [place] 80 or Below Sweatin= Chills/Flushing Restless Observation: 1= Difficult to Sit Still Pupil Size: 0= Normal to Room Light Bone or Joint Aches: 1= Mild Discomfort Runny Nose/ Eye Tearin= None GI Upset > 30mins: 0= None Tremor Observation of Outstretched Hands: 1= Tremor [place], Not Seen Yawning Observation: 1= 1-2x During Session Anxiety or Irritability: 1=Feels Anxious/Irritable Goose Flesh Skin: 0=Smooth Skin COWS Score: 6 BHS Progress Note (SOAP) Subjective: sweats anxiety muscle cramping Objective: 04/16/19 13:19 Vital Signs Temperature 96.4 F L 04/16/19 09:57 Pulse Rate 69 04/16/19 09:57 Respiratory Rate 16 04/16/19 09:57 Blood Pressure 121/62 04/16/19 09:57 O2 Sat by Pulse Oximetry (%) Laboratory Tests 04/13/19 04/14/19 04/14/19 18:39 08:45 08:45 WBC 7.7 RBC 4.65 Hgb 12.2 Hct 36.8 MCV 79.2 L MCH 26.1 MCHC 33.0 RDW 14.2 Plt Count 418 D MPV 8.3 Sodium Potassium Chloride Carbon Dioxide Anion Gap BUN Creatinine Est GFR (CKD-EPI)AfAm Est GFR (CKD-EPI)NonAf Random Glucose Calcium Total Bilirubin AST ALT Alkaline Phosphatase Total Protein Albumin Urine Color Urine Appearance Urine pH Ur Specific [place] Urine Protein Urine Glucose (UA) Urine Ketones Urine Blood Urine Nitrite Urine Bilirubin Urine Urobilinogen Ur Leukocyte Esterase Urine WBC (Auto) Urine RBC (Auto) Urine Casts (Auto) U Pathogenic Cast Auto U Epithel Cells (Auto) Urine Bacteria (Auto) POC Urine HCG, Qual Negative Phenytoin 2.6 Levetiracetam 04/14/19 04/14/19 04/15/19 08:45 08:45 14:45 WBC RBC Hgb Hct MCV MCH MCHC RDW Plt Count MPV Sodium 139 Potassium 3.9 Chloride 101 Carbon Dioxide 31 Anion Gap 7 L BUN 5.6 L Creatinine 0.8 Est GFR (CKD-EPI)AfAm 114.66 Est GFR (CKD-EPI)NonAf 98.93 Random Glucose 109 H Calcium 9.2 Total Bilirubin 0.6 AST 15 ALT 16 Alkaline Phosphatase 74 Total Protein 7.8 Albumin 3.9 Urine Color Yellow Urine Appearance Cloudy Urine pH 7.5 D Ur Specific [place] 1.032 Urine Protein Trace Urine Glucose (UA) Negative Urine Ketones Trace H Urine Blood Negative Urine Nitrite Negative Urine Bilirubin Negative Urine Urobilinogen 0.2 Ur Leukocyte Esterase 1+ H Urine WBC (Auto) 4 Urine RBC (Auto) 4 Urine Casts (Auto) 16 U Pathogenic Cast Auto None seen U Epithel Cells (Auto) 33.5 Urine Bacteria (Auto) 71.2 POC Urine HCG, Qual Phenytoin Levetiracetam None detected labs noted aaox3 ambulating no acute distress Assessment: 04/16/19 13:20 withdrawals Plan: continue detox d/c klonopin valium 10mg q4hrs x 3 days ordered
[2019-04-16] MEDS ORDERED: METHADONE HCL 10 MG TABLET (FOR DETOX USE ONLY) ONE (10:02)
[2019-04-16] MEDS ORDERED: METHADONE HCL 5 MG TABLET (FOR DETOX USE ONLY) ONE (10:02)
[2019-04-16] MEDS: PHENYTOIN NA EXTENDED 100 MG CAPSULE (FP) PO SCH ×2 (10:45→22:24)
[2019-04-16] MEDS: levETIRAcetam XR 500 MG TAB PO SCH (10:45)
[2019-04-16] MEDS: PRENATAL VITAMINS W/ FOLIC ACID TABLET (FP) PO SCH (10:45)
[2019-04-16] MEDS: diazePAM 5 MG TABLET PO PRN ×4 (10:45→22:24)
[2019-04-16] MEDS: METHOCARBAMOL 500 MG TABLET PO PRN (15:37)
[2019-04-16] MEDS: hydrOXYzine PAMOATE 50 MG CAPSULE (FP) PO PRN (15:37)
[2019-04-16] MEDS: THIAMINE HCL 100 MG TABLET (FP) PO SCH (22:24)
[2019-04-16] MEDS: SUVOREXANT 15 MG TABLET PO PRN (22:26)
[2019-04-17] MEDS: GABAPENTIN 400 MG CAPSULE (FP) PO SCH ×3 (05:44→21:50)
[2019-04-17] MEDS: diazePAM 5 MG TABLET PO PRN ×4 (05:46→17:59)
[2019-04-17] MEDS: hydrOXYzine PAMOATE 50 MG CAPSULE (FP) PO PRN (08:54)
[2019-04-17] MEDS: levETIRAcetam XR 500 MG TAB PO SCH (09:42)
[2019-04-17] MEDS: PRENATAL VITAMINS W/ FOLIC ACID TABLET (FP) PO SCH (09:42)
[2019-04-17] MEDS ORDERED: METHADONE HCL 10 MG TABLET (FOR DETOX USE ONLY) PO ONE (10:00)
[2019-04-17] MEDS: PHENYTOIN NA EXTENDED 100 MG CAPSULE (FP) PO SCH ×2 (10:31→21:50)
--- NOTE | 2019-04-17 11:13 | PN ---
BHS COWS - Scale Resting Pulse: 1= [place] 81-100 Sweatin= Chills/Flushing Restless Observation: 1= Difficult to Sit Still Pupil Size: 0= Normal to Room Light Bone or Joint Aches: 0= None Runny Nose/ Eye Tearin= Nasal Congestion GI Upset > 30mins: 0= None Tremor Observation of Outstretched Hands: 1= Tremor [place], Not Seen Yawning Observation: 1= 1-2x During Session Anxiety or Irritability: 1=Feels Anxious/Irritable Goose Flesh Skin: 0=Smooth Skin COWS Score: 7 BHS Progress Note (SOAP) Subjective: anxiety interrupted sleep sweats Objective: 04/17/19 11:12 Vital Signs Temperature 98.2 F 04/17/19 10:22 Pulse Rate 83 04/17/19 10:22 Respiratory Rate 18 04/17/19 10:22 Blood Pressure 115/77 04/17/19 10:22 O2 Sat by Pulse Oximetry (%) aaox3 ambulating no acute distress Assessment: 04/17/19 11:12 withdrawals Plan: continue detox increase fluids
[2019-04-17] MEDS: METHOCARBAMOL 500 MG TABLET PO PRN (17:02)
[2019-04-17] MEDS: THIAMINE HCL 100 MG TABLET (FP) PO SCH (21:50)
[2019-04-18] MEDS: diazePAM 5 MG TABLET PO PRN ×3 (00:41→10:37)
[2019-04-18] MEDS: GABAPENTIN 400 MG CAPSULE (FP) PO SCH ×3 (05:59→22:55)
[2019-04-18] MEDS ORDERED: METHADONE HCL 5 MG TABLET (FOR DETOX USE ONLY) PO ONE (06:00)
[2019-04-18] MEDS: PHENYTOIN NA EXTENDED 100 MG CAPSULE (FP) PO SCH ×2 (10:36→22:55)
[2019-04-18] MEDS: PRENATAL VITAMINS W/ FOLIC ACID TABLET (FP) PO SCH (10:36)
[2019-04-18] MEDS: levETIRAcetam XR 500 MG TAB PO SCH (10:36)
[2019-04-18] MEDS: METHOCARBAMOL 500 MG TABLET PO PRN ×2 (10:37→17:07)
[2019-04-18] MEDS: hydrOXYzine PAMOATE 50 MG CAPSULE (FP) PO PRN ×2 (12:37→22:56)
--- NOTE | 2019-04-18 14:22 | PN ---
BHS COWS - Scale Resting Pulse: 0= [place] 80 or Below Sweatin= Chills/Flushing Restless Observation: 1= Difficult to Sit Still Pupil Size: 0= Normal to Room Light Bone or Joint Aches: 0= None Runny Nose/ Eye Tearin= None GI Upset > 30mins: 0= None Tremor Observation of Outstretched Hands: 0= None Yawning Observation: 0= None Anxiety or Irritability: 2=Irritable/Anxious Goose Flesh Skin: 0=Smooth Skin COWS Score: 4 BHS Progress Note (SOAP) Subjective: c/o mild anxiety and irritability. Objective: 04/18/19 14:19 Vital Signs 04/18/19 04/18/19 09:50 13:53 Temperature 98.0 F 98.1 F Pulse Rate 63 92 H Respiratory 18 18 Rate Blood Pressure 116/71 134/98 Lab Results WBC 7.7 K/mm3 (4.0-10.0) 04/14/19 08:45 RBC 4.65 M/mm3 (3.60-5.2) 04/14/19 08:45 Hgb 12.2 GM/dL (10.7-15.3) 04/14/19 08:45 Hct 36.8 % (32.4-45.2) 04/14/19 08:45 MCV 79.2 fl (80-96) L 04/14/19 08:45 MCHC 33.0 g/dl (32.0-36.0) 04/14/19 08:45 RDW 14.2 % (11.6-15.6) 04/14/19 08:45 Plt Count 418 K/MM3 (134-434) D 04/14/19 08:45 Sodium 139 mmol/L (136-145) 04/14/19 08:45 Potassium 3.9 mmol/L (3.5-5.1) 04/14/19 08:45 Chloride 101 mmol/L (98-107) 04/14/19 08:45 Carbon Dioxide 31 mmol/L (21-32) 04/14/19 08:45 Anion Gap 7 MMOL/L (8-16) L 04/14/19 08:45 BUN 5.6 mg/dL (7-18) L 04/14/19 08:45 Creatinine 0.8 mg/dL (0.55-1.3) 04/14/19 08:45 Random Glucose 109 mg/dL (74-106) H 04/14/19 08:45 Calcium 9.2 mg/dL (8.5-10.1) 04/14/19 08:45 Labs noted. Assessment: 04/18/19 14:19 AOX3, in no acute respiratory distress. Full ROM, ambulating in the unit. mild withdrawal symptoms. For discharge tomorrow. Plan: continue detox. D/C in AM.
[2019-04-18] MEDS: THIAMINE HCL 100 MG TABLET (FP) PO SCH (22:54)
[2019-04-18] MEDS: MELATONIN 5 MG TABLETS PO PRN (22:55)
[2019-04-19] MEDS: GABAPENTIN 400 MG CAPSULE (FP) PO SCH (06:36)
[2019-04-19 09:34] VITALS: BP 101/61; PULSE 63; TEMP 97.5
[2019-04-19] MEDS ORDERED: METHADONE HCL 10 MG TABLET PO ONE (10:00)
[2019-04-19] MEDS: PHENYTOIN NA EXTENDED 100 MG CAPSULE (FP) PO SCH (10:24)
[2019-04-19] MEDS: levETIRAcetam XR 500 MG TAB PO SCH (10:25)
[2019-04-19] MEDS: PRENATAL VITAMINS W/ FOLIC ACID TABLET (FP) PO SCH (10:25)
--- NOTE | 2019-04-19 13:05 | PN ---
BHS COWS - Scale Resting Pulse: 0= [place] 80 or Below Sweatin= No chills or Flushing Restless Observation: 0= Sits Still Pupil Size: 0= Normal to Room Light Bone or Joint Aches: 1= Mild Discomfort Runny Nose/ Eye Tearin= None GI Upset > 30mins: 0= None Tremor Observation of Outstretched Hands: 1= Tremor [place], Not Seen Yawning Observation: 0= None Anxiety or Irritability: 1=Feels Anxious/Irritable Goose Flesh Skin: 0=Smooth Skin COWS Score: 3 BHS Progress Note (SOAP) Subjective: denies any complaint Objective: 04/19/19 13:04 Vital Signs Temperature 97.5 F L 04/19/19 09:33 Pulse Rate 63 04/19/19 09:33 Respiratory Rate 18 04/19/19 09:33 Blood Pressure 101/61 04/19/19 09:33 O2 Sat by Pulse Oximetry (%) Assessment: 04/19/19 13:05 detox completed Plan: for d/c
--- NOTE | 2019-04-19 13:08 | DS ---
[facility] Detox Discharge Summary Admission Date: 04/13/19 Discharge Date: 04/19/19 - History Additional Comments: pt completed detox. Denies any complaint, in no acute distress Gait steady Will do aftercare rehab at [facility] - Physical Exam Results Vital Signs: Vital Signs Temperature 97.5 F L 04/19/19 09:33 Pulse Rate 63 04/19/19 09:33 Respiratory Rate 18 04/19/19 09:33 Blood Pressure 101/61 04/19/19 09:33 O2 Sat by Pulse Oximetry (%) - Treatment Hospital Course: Detox Protocol Followed, Detoxed Safely, Responded well, Discharged Condition Good, Rehab Referral Accepted Patient has Accepted a Rehab Referral to: [facility] Re[facility] - Medication Discharge Medications: Ambulatory Orders levETIRAcetam [Keppra Xr -] 1,000 mg PO DAILY 02/13/16 Phenytoin Na Extended [Dilantin -] 100 mg PO BID 03/24/19 Gabapentin [Neurontin -] 800 mg PO Q8H 5 Days #15 capsule 04/18/19 - Diagnosis (1) Opioid dependence with withdrawal Status: Acute (2) Substance induced mood disorder Status: Acute (3) Substance-induced anxiety disorder Status: Acute (4) Substance-induced sleep disorder Status: Acute (5) Anemia Status: Chronic Qualifiers: Anemia type: iron deficiency (6) Borderline personality disorder Status: Chronic (7) Bradycardia Status: Chronic (8) Cannabis dependence, uncomplicated Status: Chronic (9) Cocaine dependence, uncomplicated Status: Chronic (10) Drug-induced mood disorder Status: Chronic (11) History of seizures Status: Chronic (12) Nicotine dependence Status: Chronic Qualifiers: Nicotine product type: cigarettes Substance use status: uncomplicated Qualified Code(s): F17.210 - Nicotine dependence, cigarettes, uncomplicated (13) Seizure disorder Status: Chronic (14) Alcohol abuse Status: Acute - AMA Did Patient Leave Against Medical Advice: No
== END 2019-04-19 12:06 | disposition other institution (70) | DRG 773 ==
LOC: YASAS 16:04 → Y6N 19:41
PROVIDERS: ADMIT Surgery; ATTEND Surgery
PROC: HZ2ZZZZ Detoxification Services for Substance Abuse Treatment (ICD-10-PCS; principal; 2019-04-13)
DX: F11.23 Opioid dependence with withdrawal (principal); F10.10 Alcohol abuse, uncomplicated; F14.20 Cocaine dependence, uncomplicated; F12.20 Cannabis dependence, uncomplicated; F17.210 Nicotine dependence, cigarettes, uncomplicated; F19.280 Other psychoactive substance dependence with psychoactive substance-induced anxiety disorder; F19.282 Other psychoactive substance dependence with psychoactive substance-induced sleep disorder; F19.24 Other psychoactive substance dependence with psychoactive substance-induced mood disorder; F31.9 Bipolar disorder, unspecified; F41.9 Anxiety disorder, unspecified; F60.3 Borderline personality disorder; G40.909 Epilepsy, unspecified, not intractable, without status epilepticus; D50.9 Iron deficiency anemia, unspecified; R00.1 Bradycardia, unspecified; R01.1 Cardiac murmur, unspecified; Z91.5 Personal history of self-harm; Z91.018 Allergy to other foods
CPT/HCPCS: 36415; 80053; 80177; 80185; 81003; 81025; 85027

== ENCOUNTER 2019-04-19 12:10 | Inpatient (IN) | payer OTHER ==
--- NOTE | 2019-04-19 13:14 | HP ---
[facility] Rehab Assess/Revision - Admission History Date of Admission to Rehab: 04/19/19 - Findings Detox History & Physical reviewed: Yes Concur with findings: Yes Inpatient Rehab Admission - Rehab Decision to Admit Inpatient rehab admission?: Yes - Initial Determination Are CD services needed?: Yes Free of communicable disease: Yes Not in need of hospitalization: Yes - Rehab Admission Criteria Previous failed treatment: Yes Poor recovery environment: Yes Comorbidities: Yes Lacks judgement: Yes Patient is meeting Inpatient Rehab admission criteria:: Yes
[2019-04-19] MEDS ORDERED: P-EPHED 60MG/TRIPROLIDI 2.5MG TABLET PO PRN (13:16)
[2019-04-19] MEDS ORDERED: MENTHOL/PHENOL 1 EACH UD MM PRN (13:16)
[2019-04-19] MEDS ORDERED: LOPERAMIDE HCL 2 MG CAPSULE PO PRN (13:16)
[2019-04-19] MEDS ORDERED: MAGNESIUM CITRATE 300 ML BOTTLE PO PRN (13:16)
[2019-04-19] MEDS ORDERED: IBUPROFEN 400 MG TABLET (FP) PO PRN (13:16)
[2019-04-19] MEDS ORDERED: MAG HYDROX/AL HYDROX/SIMETH 30 ML UNIT-DOSE CUP PO PRN (13:16)
[2019-04-19] MEDS ORDERED: guaiFENesin 200 MG/10 ML 10 ML UNIT-DOSE CUPS PO PRN (13:16)
[2019-04-19] MEDS ORDERED: ACETAMINOPHEN 325 MG TABLET (FP) PO PRN (13:16)
[2019-04-19] MEDS ORDERED: MAGNESIUM HYDROX 2400MG/30ML ORAL SUSPENSION 30 ML CUP PO PRN (13:16)
[2019-04-19] MEDS: THIAMINE HCL 100 MG TABLET (FP) PO SCH (21:39)
[2019-04-19] MEDS: PHENYTOIN NA EXTENDED 100 MG CAPSULE (FP) PO SCH (21:39)
[2019-04-19] MEDS: MELATONIN 5 MG TABLETS PO PRN (21:40)
[2019-04-19] MEDS ORDERED: PT OWN MED DRAWER 7, Y5N ONE (21:58)
[2019-04-19] MEDS: NICOTINE 21 MG/24 HOURS TOPICAL PATCH TD SCH (22:53)
[2019-04-20] MEDS: GABAPENTIN 400 MG CAPSULE (FP) PO SCH ×4 (00:53→21:15)
[2019-04-20] MEDS: PHENYTOIN NA EXTENDED 100 MG CAPSULE (FP) PO SCH ×2 (10:29→21:14)
[2019-04-20] MEDS: PRENATAL VITAMINS W/ FOLIC ACID TABLET (FP) PO SCH (10:29)
[2019-04-20] MEDS: NICOTINE 21 MG/24 HOURS TOPICAL PATCH TD SCH (10:29)
[2019-04-20] MEDS: levETIRAcetam XR 500 MG TAB PO SCH (10:30)
[2019-04-20] MEDS ORDERED: hydrOXYzine PAMOATE 50 MG CAPSULE (FP) PO PRN (12:39)
--- NOTE | 2019-04-20 13:28 | PN ---
S Progress Note Note: Patient seen for c/o anxiety with insomnia and dry skin. Patient denies SI/HI. Vital Signs Temperature 97.7 F 04/20/19 07:26 Pulse Rate 55 L 04/20/19 07:26 Respiratory Rate 18 04/20/19 07:26 Blood Pressure 126/86 04/20/19 07:26 O2 Sat by Pulse Oximetry (%) Laboratory Tests 04/20/19 07:45 HIV 1&2 Antibody Screen Negative HIV P24 Antigen Negative PE alert and oriented x 3 skin warm and dry + Perrla, eoms intact bl neck supple, no jvd ext full rom, amb ad charles mildly anxious and restless A/P anxiety with insomnia dry skin will order aveeno soap eucerin cream psych consult vistaril 50mg q6h prn ordered
--- NOTE | 2019-04-20 13:37 | PN ---
[facility] Progress Note Note: Hx Seizure disorder Blood levels done in Detox sub therapeutic or none for : Keppra = Undetectable Dilantin level on 04/14/19 = 2.6 plan: Repeat keppra and Dilantin levels in the morning.
[2019-04-20] MEDS: COLLOIDAL OATMEAL 1 BAR EACH TP PRN (16:51)
[2019-04-20] MEDS: THIAMINE HCL 100 MG TABLET (FP) PO SCH (21:14)
[2019-04-20] MEDS: MINERAL OIL/PETROLAT/WATER TOPICAL CREAM 113 GM JAR TP SCH (21:15)
[2019-04-20] MEDS: MELATONIN 5 MG TABLETS PO PRN (21:15)
[2019-04-21] MEDS: GABAPENTIN 400 MG CAPSULE (FP) PO SCH ×3 (06:51→21:09)
--- NOTE | 2019-04-21 09:40 | CONSULT ---
[facility] Psychiatric Consult - Data Date of interview: 04/21/19 Admission source: [facility] Identifying data: Patient is a 28 year old single female, mother of one, employed, but is currently homeless. This is one of multiple admissions for patient. Patient admitted to for opiate dependence. Substance Abuse History: Reproductive History. Patient is a Female of Child Bearing Age (11 -55 yrs old): Yes. Last Menstrual Period: 03/29/19. Patient : No. - Smoking Cessation. Smoking history: Current every day smoker. Have you smoked in the past 12 months: Yes. Aproximately how many cigarettes per day: 5. Hx Chewing Tobacco Use: No. Initiated information on smoking cessation: Yes. 'Breaking Loose' booklet given: 04/13/19. - Substance & Tx. History. Hx Alcohol Use: Yes. Hx Substance Use: Yes. Substance Use Type: Alcohol, Cocaine, Heroin, Marijuana, Opiates. Hx Substance Use Treatment: Yes ( detox, rehab). - Substances abused. Other. Other (specify): percocet. Substance route: Oral. Frequency: Daily. Amount used: 5 tab of 10 mg. Age of first use: 17. Date of last use: 04/12/19. Heroin. Other (specify): sniff. Frequency: Daily. Amount used: 1 to2. Age of first use: 26. Date of last use: 04/13/19. Alcohol. Substance route: Oral. Frequency: Daily. Amount used: 1 beer. Age of first use: 15. Date of last use: 04/12/19 Medical History: Significant for a history of seizure disorder (on keppra), lower back pain, anemia, heart murmur and history of orthosurgery back and right shoulder) Psychiatric History: Patient's first psychiatric contact was three years ago at an outpatient clinic on [facility] in [place], [place] to address her history of depression secondary to her grandmother's in 2011. Patient reports being diagnosed with depression and anxiety and was prescribed gabapentin + Klonopin + Ambien. After three years Ms. Gifford discontinued treatment. Patient's next psychiatric contact occured at detox/rehab facilites ([facility] and [facility]). She reports being diagnosed with bipolar disorder at [facility]. Patient reports history of one suicide attempt by cutting herself after her gradmother . Ms. Gifford denies history of psychiatric hospitalization. At present patient reports difficulty sleeping and "panic attacks" when she awakens in the middle of the night and in the morning. Physical/Sexual Abuse/Trauma History: denies. Mental Status Exam - Mental Status Exam Alert and Oriented to: Time, Place, Person Cognitive Function: Good Patient Appearance: Well Groomed Mood: Euthymic Affect: Mood Congruent Patient Behavior: Cooperative Speech Pattern: Appropriate Voice Loudness: Normal Thought Process: Goal Oriented Thought Disorder: Not Present Hallucinations: Denies Suicidal Ideation: Denies Homicidal Ideation: Denies Insight/Judgement: Poor Sleep: Poorly Appetite: Fair Muscle strength/Tone: Normal Gait/Station: Normal Psychiatric Findings - Problem List ([place] 1, 2,3) (1) Substance-induced anxiety disorder Current Visit: Yes Status: Acute (2) Substance-induced sleep disorder Current Visit: Yes Status: Acute (3) Opioid dependence Current Visit: Yes Status: Acute (4) Nicotine dependence Current Visit: Yes Status: Chronic Qualifiers: Nicotine product type: cigarettes Substance use status: uncomplicated Qualified Code(s): F17.210 - Nicotine dependence, cigarettes, uncomplicated (5) Alcohol use disorder Current Visit: Yes Status: Acute - Initial Treatment Plan Initial Treatment Plan: Psychoeducation provided. Rehab in progress. Will order vistaril 25mg q4h and Belsomra 15mg HS. Benefits and side effects discussed. Verbal consent given.
[2019-04-21] MEDS: PHENYTOIN NA EXTENDED 100 MG CAPSULE (FP) PO SCH ×2 (10:22→21:09)
[2019-04-21] MEDS: MINERAL OIL/PETROLAT/WATER TOPICAL CREAM 113 GM JAR TP SCH ×2 (10:23→21:12)
[2019-04-21] MEDS: levETIRAcetam XR 500 MG TAB PO SCH (10:24)
[2019-04-21] MEDS: PRENATAL VITAMINS W/ FOLIC ACID TABLET (FP) PO SCH (10:25)
[2019-04-21] MEDS: NICOTINE 21 MG/24 HOURS TOPICAL PATCH TD SCH (10:25)
[2019-04-21] MEDS: NICOTINE POLACRILEX 2 MG GUM BC PRN ×2 (10:27→13:57)
[2019-04-21] MEDS: CYCLOBENZAPRINE HCL 10 MG TABLET (FP) PO PRN ×2 (10:27→17:48)
[2019-04-21] MEDS: hydrOXYzine PAMOATE 25 MG CAPSULE (FP) PO PRN ×2 (11:55→17:48)
[2019-04-21] MEDS ORDERED: PT OWN MED DRAWER 7, Y5N ONE (14:14)
[2019-04-21] MEDS: THIAMINE HCL 100 MG TABLET (FP) PO SCH (21:08)
[2019-04-21] MEDS: MELATONIN 5 MG TABLETS PO PRN (21:10)
[2019-04-21] MEDS: SUVOREXANT 5 MG TABLET PO PRN (21:12)
[2019-04-22] MEDS: GABAPENTIN 400 MG CAPSULE (FP) PO SCH ×3 (06:32→21:23)
[2019-04-22] MEDS: CYCLOBENZAPRINE HCL 10 MG TABLET (FP) PO PRN ×3 (06:33→21:24)
[2019-04-22] MEDS ORDERED: PT OWN MED DRAWER 7, Y5N ONE (08:47)
[2019-04-22] MEDS: hydrOXYzine PAMOATE 25 MG CAPSULE (FP) PO PRN ×3 (10:33→21:25)
[2019-04-22] MEDS: PRENATAL VITAMINS W/ FOLIC ACID TABLET (FP) PO SCH (10:33)
[2019-04-22] MEDS: levETIRAcetam XR 500 MG TAB PO SCH (10:33)
[2019-04-22] MEDS: NICOTINE 21 MG/24 HOURS TOPICAL PATCH TD SCH (10:33)
[2019-04-22] MEDS: PHENYTOIN NA EXTENDED 100 MG CAPSULE (FP) PO SCH ×2 (10:33→21:23)
[2019-04-22] MEDS: MINERAL OIL/PETROLAT/WATER TOPICAL CREAM 113 GM JAR TP SCH ×2 (10:34→21:28)
[2019-04-22] MEDS: NICOTINE POLACRILEX 2 MG GUM BC PRN (10:34)
[2019-04-22] MEDS: SUVOREXANT 5 MG TABLET PO PRN (21:24)
[2019-04-22] MEDS: MELATONIN 5 MG TABLETS PO PRN (21:24)
[2019-04-22] MEDS: THIAMINE HCL 100 MG TABLET (FP) PO SCH (21:24)
[2019-04-23] MEDS: GABAPENTIN 400 MG CAPSULE (FP) PO SCH ×4 (06:55→21:16)
[2019-04-23] MEDS: hydrOXYzine PAMOATE 25 MG CAPSULE (FP) PO PRN ×3 (06:55→19:05)
[2019-04-23] MEDS: CYCLOBENZAPRINE HCL 10 MG TABLET (FP) PO PRN ×2 (06:55→14:59)
[2019-04-23] MEDS: PHENYTOIN NA EXTENDED 100 MG CAPSULE (FP) PO SCH ×2 (10:07→21:16)
[2019-04-23] MEDS: levETIRAcetam XR 500 MG TAB PO SCH (10:08)
[2019-04-23] MEDS: MINERAL OIL/PETROLAT/WATER TOPICAL CREAM 113 GM JAR TP SCH ×2 (10:08→21:19)
[2019-04-23] MEDS: PRENATAL VITAMINS W/ FOLIC ACID TABLET (FP) PO SCH (10:08)
[2019-04-23] MEDS: NICOTINE 21 MG/24 HOURS TOPICAL PATCH TD SCH (10:08)
[2019-04-23] MEDS: NICOTINE POLACRILEX 2 MG GUM BC PRN (10:09)
--- NOTE | 2019-04-23 11:26 | PN ---
[facility] Progress Note Note: Gabapentin increased to QID, verified with outside pharmacy. This total dose is 3200mg/day.
--- NOTE | 2019-04-23 14:29 | PN ---
Psychiatric Progress Note Vital Signs: Vital Signs Period Temp Pulse Resp BP Sys/Hubbard Pulse Ox Last 24 Hr 98.9 F 76 16-18 129/88 Date of Session: 04/23/19 Chief Complaint:: "I'm having bad anxiety." HPI: Patient admitted to for opiate dependence. Patient reports worsening anxiety. ROS: Patient is coherent, alert + oriented X3. Current Medications: Active Medications Generic Name Dose Route Start Last Admin Trade Name Freq PRN Reason Stop Dose Admin Acetaminophen 650 mg 04/19/19 13:16 Tylenol - PO Q4H PRN FEVER Al Hydroxide/Mg Hydroxide 30 ml 04/19/19 13:16 Mylanta Oral Suspension - PO Q6H PRN DYSPEPSIA Colloidal Oatmeal 1 applic 04/20/19 12:06 04/20/19 16:51 Aveeno Soap - TP 1 applic DAILY PRN Administration HYGEINE Cyclobenzaprine HCl 10 mg 04/21/19 09:54 04/23/19 06:55 Flexeril - PO 10 mg TID PRN Administration MUSCLE SPASMS Eucalyptus/Menthol/Phenol/Sorbitol 1 each 04/19/19 13:16 Cepastat Lozenge - MM Q4H PRN SORE THROAT Gabapentin 800 mg 04/23/19 12:00 04/23/19 12:53 Neurontin - PO 800 mg QID DAVE Administration Guaifenesin 10 ml 04/19/19 13:16 Robitussin - PO Q6H PRN COUGH Hydroxyzine Pamoate 25 mg 04/21/19 11:00 04/23/19 12:54 Vistaril - PO 25 mg Q4H PRN Administration ANXIETY Ibuprofen 400 mg 04/19/19 13:16 Motrin - PO Q6H PRN Pain Level 4-6 Levetiracetam 1,000 mg 04/20/19 10:00 04/23/19 10:08 Keppra Xr - PO 1,000 mg DAILY DAVE Administration Loperamide HCl 4 mg 04/19/19 13:16 Imodium - PO Q6H PRN DIARRHEA Magnesium Citrate 300 ml 04/19/19 13:16 Citroma - PO Q48H PRN CONSTIPATION Magnesium Hydroxide 30 ml 04/19/19 13:16 Milk Of Magnesia - PO DAILY PRN CONSTIPATION Melatonin 10 mg 04/21/19 09:55 04/22/19 21:24 Melatonin PO 10 mg HS PRN Administration INSOMNIA Multi-Ingredient Lotion 1 applic 04/20/19 22:00 04/23/19 10:08 Eucerin (Small Jar) - TP Not Given BID DAVE Nicotine 21 mg 04/19/19 13:30 04/23/19 10:08 Nicoderm Patch - TD Not Given DAILY DAVE Nicotine Polacrilex 2 mg 04/21/19 07:12 04/23/19 10:09 Nicorette Gum - BC 2 mg Q2H PRN Administration NICOTINE REPLACEMENT RX Phenytoin Sodium 100 mg 04/19/19 22:00 04/23/19 10:07 Dilantin - PO 100 mg BID DAVE Administration Multivit/Folic Acid/Iron 1 tab 04/20/19 10:00 04/23/19 10:08 Vitamins (Sjr) - PO 1 tab DAILY DAVE Administration Pseudoephedrine/Triprolidine 1 combo 04/19/19 13:16 Actifed - PO TID PRN NASAL CONGESTION Suvorexant 15 mg 04/21/19 22:00 04/22/19 21:24 Belsomra PO 15 mg HS PRN Administration INSOMNIA Thiamine HCl 100 mg 04/19/19 22:00 04/22/19 21:24 Vitamin B1 - PO 100 mg HS DAVE Administration Medication(s) Change(s): Yes. Current Side Effect: No Lab tests ordered: No Lab tests reviewed: Yes Provider note:: Patient reports anxiety despite accepting vistaril 25mg q4h. Patient requesting an increase in vistaril to help manage her anxiety. Will d/ c vistaril 25mg and will order vistaril 50mg q6h. Patient also encouraged to utilize her coping skills to help manage her anxiety. Benefits and side effects discussed. Verbal consent given. Total face to face time:: 25 Mental Status Exam - Mental Status Exam Alert and Oriented to: Time, Place, Person Cognitive Function: Good Patient Appearance: Well Groomed Mood: Euthymic Affect: Mood Congruent Patient Behavior: Cooperative Speech Pattern: Appropriate Voice Loudness: Normal Thought Process: Goal Oriented Thought Disorder: Not Present Hallucinations: Denies Suicidal Ideation: Denies Homicidal Ideation: Denies Insight/Judgement: Poor Sleep: Fair Appetite: Fair Muscle strength/Tone: Normal Gait/Station: Normal Psychiatric Treatment Plan - Problem List (1) Substance-induced anxiety disorder Current Visit: Yes (2) Substance-induced sleep disorder Current Visit: Yes (3) Opioid dependence Current Visit: Yes (4) Nicotine dependence Current Visit: Yes Qualifiers: Nicotine product type: cigarettes Substance use status: uncomplicated Qualified Code(s): F17.210 - Nicotine dependence, cigarettes, uncomplicated (5) Alcohol use disorder Current Visit: Yes
[2019-04-23] MEDS: MELATONIN 5 MG TABLETS PO PRN (21:16)
[2019-04-23] MEDS: THIAMINE HCL 100 MG TABLET (FP) PO SCH (21:16)
[2019-04-24] MEDS: NICOTINE POLACRILEX 2 MG GUM BC PRN ×2 (06:38→10:40)
[2019-04-24] MEDS: CYCLOBENZAPRINE HCL 10 MG TABLET (FP) PO PRN ×2 (07:34→16:42)
[2019-04-24] MEDS: hydrOXYzine PAMOATE 25 MG CAPSULE (FP) PO PRN ×3 (07:34→22:58)
[2019-04-24] MEDS: GABAPENTIN 400 MG CAPSULE (FP) PO SCH ×4 (10:37→21:41)
[2019-04-24] MEDS: PRENATAL VITAMINS W/ FOLIC ACID TABLET (FP) PO SCH (10:38)
[2019-04-24] MEDS: PHENYTOIN NA EXTENDED 100 MG CAPSULE (FP) PO SCH ×2 (10:38→21:41)
[2019-04-24] MEDS: levETIRAcetam XR 500 MG TAB PO SCH (10:39)
[2019-04-24] MEDS: NICOTINE 21 MG/24 HOURS TOPICAL PATCH TD SCH (10:40)
[2019-04-24] MEDS ORDERED: PT OWN MED DRAWER 7, Y5N ONE ×3 (10:40→21:50)
[2019-04-24] MEDS: MINERAL OIL/PETROLAT/WATER TOPICAL CREAM 113 GM JAR TP SCH ×2 (10:40→21:48)
--- NOTE | 2019-04-24 14:59 | PN ---
[facility] Progress Note Note: Laboratory Tests 04/20/19 04/21/19 04/21/19 07:45 08:15 08:15 Phenytoin 5.7 Levetiracetam 4.2 L HIV 1&2 Antibody Screen Negative HIV P24 Antigen Negative Keppra level improved from undetectable. continue keppra 1000 mg Xr as directed. Repeat keppra level in 3 days.
[2019-04-24] MEDS: SUVOREXANT 5 MG TABLET PO PRN (21:46)
[2019-04-24] MEDS: THIAMINE HCL 100 MG TABLET (FP) PO SCH (21:48)
[2019-04-25] MEDS ORDERED: PT OWN MED DRAWER 7, Y5N ONE (08:43)
[2019-04-25] MEDS: hydrOXYzine PAMOATE 25 MG CAPSULE (FP) PO PRN ×4 (09:06→21:38)
[2019-04-25] MEDS: CYCLOBENZAPRINE HCL 10 MG TABLET (FP) PO PRN ×3 (09:07→21:38)
[2019-04-25] MEDS: PHENYTOIN NA EXTENDED 100 MG CAPSULE (FP) PO SCH ×2 (10:16→21:38)
[2019-04-25] MEDS: GABAPENTIN 400 MG CAPSULE (FP) PO SCH ×4 (10:16→21:38)
[2019-04-25] MEDS: NICOTINE POLACRILEX 2 MG GUM BC PRN (10:16)
[2019-04-25] MEDS: PRENATAL VITAMINS W/ FOLIC ACID TABLET (FP) PO SCH (10:16)
[2019-04-25] MEDS: MINERAL OIL/PETROLAT/WATER TOPICAL CREAM 113 GM JAR TP SCH ×2 (10:17→21:42)
[2019-04-25] MEDS: NICOTINE 21 MG/24 HOURS TOPICAL PATCH TD SCH (10:17)
[2019-04-25] MEDS: levETIRAcetam XR 500 MG TAB PO SCH (11:26)
[2019-04-25] MEDS: THIAMINE HCL 100 MG TABLET (FP) PO SCH (21:37)
[2019-04-25] MEDS: MELATONIN 5 MG TABLETS PO PRN (21:37)
[2019-04-25] MEDS: SUVOREXANT 5 MG TABLET PO PRN (21:40)
[2019-04-26] MEDS: hydrOXYzine PAMOATE 25 MG CAPSULE (FP) PO PRN ×4 (07:02→21:45)
[2019-04-26] MEDS: CYCLOBENZAPRINE HCL 10 MG TABLET (FP) PO PRN ×3 (07:03→21:45)
[2019-04-26] MEDS: levETIRAcetam XR 500 MG TAB PO SCH (10:25)
[2019-04-26] MEDS: PHENYTOIN NA EXTENDED 100 MG CAPSULE (FP) PO SCH ×2 (10:25→21:45)
[2019-04-26] MEDS: GABAPENTIN 400 MG CAPSULE (FP) PO SCH ×4 (10:25→21:45)
[2019-04-26] MEDS: MINERAL OIL/PETROLAT/WATER TOPICAL CREAM 113 GM JAR TP SCH ×2 (10:25→21:47)
[2019-04-26] MEDS: PRENATAL VITAMINS W/ FOLIC ACID TABLET (FP) PO SCH (10:25)
[2019-04-26] MEDS: NICOTINE 21 MG/24 HOURS TOPICAL PATCH TD SCH (10:25)
[2019-04-26] MEDS: NICOTINE POLACRILEX 2 MG GUM BC PRN (10:26)
[2019-04-26] MEDS: THIAMINE HCL 100 MG TABLET (FP) PO SCH (21:44)
[2019-04-26] MEDS: MELATONIN 5 MG TABLETS PO PRN (21:45)
[2019-04-26] MEDS: SUVOREXANT 5 MG TABLET PO PRN (21:47)
[2019-04-27] MEDS: CYCLOBENZAPRINE HCL 10 MG TABLET (FP) PO PRN ×3 (06:54→21:26)
[2019-04-27] MEDS: hydrOXYzine PAMOATE 25 MG CAPSULE (FP) PO PRN ×4 (06:54→21:24)
[2019-04-27] MEDS ORDERED: PT OWN MED DRAWER 7, Y5N ONE ×2 (09:21→14:02)
[2019-04-27] MEDS: NICOTINE 21 MG/24 HOURS TOPICAL PATCH TD SCH (10:40)
[2019-04-27] MEDS: PRENATAL VITAMINS W/ FOLIC ACID TABLET (FP) PO SCH (10:40)
[2019-04-27] MEDS: NICOTINE POLACRILEX 2 MG GUM BC PRN (10:40)
[2019-04-27] MEDS: GABAPENTIN 400 MG CAPSULE (FP) PO SCH ×4 (10:40→21:24)
[2019-04-27] MEDS: PHENYTOIN NA EXTENDED 100 MG CAPSULE (FP) PO SCH ×2 (10:40→21:24)
[2019-04-27] MEDS: MINERAL OIL/PETROLAT/WATER TOPICAL CREAM 113 GM JAR TP SCH ×2 (10:43→21:31)
[2019-04-27] MEDS: levETIRAcetam XR 500 MG TAB PO SCH (13:58)
[2019-04-27] MEDS: COLLOIDAL OATMEAL 1 BAR EACH TP PRN (14:01)
--- NOTE | 2019-04-27 14:55 | PN ---
[facility] Progress Note Note: Patient continue to report sleeping poorly despite taking Belsomra 15 mg/hs and Melatonin 10 mg/hs. Belsomra dosage will be increased to 20 mg/hs prn
[2019-04-27] MEDS ORDERED: cloNIDine HCL 0.1 MG TABLET PO PRN ×2 (15:52→16:57)
--- NOTE | 2019-04-27 16:57 | PN ---
[facility] Progress Note Note: Patient states she would like to increase gabapentin as medication calms her down better than vistaril. Patient has hx of seizure disorder and is on Keppra and Gabapentin treatment. Patient informed she cannot have gabapentin increased (on 800mg QID) as she is on it for her seizures not anxiety. Patient reports she mainly has episodes of anxiety and palpitations at night but if fine during the day. PE alert and oriented x 3 skin warm and dry +perrla eoms intact bl neck supple no jvd ext full rom, amb ad charles A/P anxiety Will add clonidine 0.1mg daily prn for anxiety and monitor clinically. Vital Signs Period Temp Pulse Resp BP Sys/Hubbard Pulse Ox Last 24 Hr 98.3 F 65 17-18 115/71
[2019-04-27] MEDS: THIAMINE HCL 100 MG TABLET (FP) PO SCH (21:24)
[2019-04-27] MEDS: SUVOREXANT 20 MG TABLET PO PRN (21:26)
[2019-04-28] MEDS: hydrOXYzine PAMOATE 25 MG CAPSULE (FP) PO PRN ×2 (06:21→10:30)
[2019-04-28] MEDS: CYCLOBENZAPRINE HCL 10 MG TABLET (FP) PO PRN ×3 (06:21→21:35)
[2019-04-28] MEDS: levETIRAcetam XR 500 MG TAB PO SCH (09:50)
[2019-04-28] MEDS: GABAPENTIN 400 MG CAPSULE (FP) PO SCH ×4 (09:50→21:36)
[2019-04-28] MEDS: PHENYTOIN NA EXTENDED 100 MG CAPSULE (FP) PO SCH ×2 (09:50→21:31)
[2019-04-28] MEDS: MINERAL OIL/PETROLAT/WATER TOPICAL CREAM 113 GM JAR TP SCH ×2 (09:50→21:31)
[2019-04-28] MEDS: NICOTINE POLACRILEX 2 MG GUM BC PRN (09:51)
[2019-04-28] MEDS: PRENATAL VITAMINS W/ FOLIC ACID TABLET (FP) PO SCH (09:51)
[2019-04-28] MEDS: NICOTINE 21 MG/24 HOURS TOPICAL PATCH TD SCH (09:51)
[2019-04-28] MEDS ORDERED: PT OWN MED DRAWER 7, Y5N ONE ×3 (10:09→13:27)
[2019-04-28] MEDS: hydrOXYzine PAMOATE 50 MG CAPSULE (FP) PO PRN ×2 (14:34→18:28)
[2019-04-28] MEDS: THIAMINE HCL 100 MG TABLET (FP) PO SCH (21:31)
[2019-04-28] MEDS: MELATONIN 5 MG TABLETS PO PRN (21:35)
[2019-04-28] MEDS: SUVOREXANT 20 MG TABLET PO PRN (21:35)
[2019-04-29] MEDS: hydrOXYzine PAMOATE 50 MG CAPSULE (FP) PO PRN ×3 (06:33→15:35)
[2019-04-29] MEDS: CYCLOBENZAPRINE HCL 10 MG TABLET (FP) PO PRN ×2 (06:33→14:49)
[2019-04-29] MEDS: MINERAL OIL/PETROLAT/WATER TOPICAL CREAM 113 GM JAR TP SCH ×2 (09:30→21:19)
[2019-04-29] MEDS: PHENYTOIN NA EXTENDED 100 MG CAPSULE (FP) PO SCH ×2 (09:30→21:19)
[2019-04-29] MEDS: PRENATAL VITAMINS W/ FOLIC ACID TABLET (FP) PO SCH (09:30)
[2019-04-29] MEDS: levETIRAcetam XR 500 MG TAB PO SCH (09:30)
[2019-04-29] MEDS: NICOTINE POLACRILEX 2 MG GUM BC PRN (09:31)
[2019-04-29] MEDS: GABAPENTIN 400 MG CAPSULE (FP) PO SCH ×4 (09:31→21:20)
[2019-04-29] MEDS: NICOTINE 21 MG/24 HOURS TOPICAL PATCH TD SCH (09:32)
[2019-04-29] MEDS ORDERED: PT OWN MED DRAWER 7, Y5N ONE (12:07)
[2019-04-29] MEDS: MELATONIN 5 MG TABLETS PO PRN (21:18)
[2019-04-29] MEDS: THIAMINE HCL 100 MG TABLET (FP) PO SCH (21:18)
[2019-04-29] MEDS: SUVOREXANT 20 MG TABLET PO PRN (21:21)
[2019-04-30] MEDS: CYCLOBENZAPRINE HCL 10 MG TABLET (FP) PO PRN ×2 (06:28→14:34)
[2019-04-30] MEDS: hydrOXYzine PAMOATE 50 MG CAPSULE (FP) PO PRN ×2 (06:28→14:33)
[2019-04-30] MEDS: MINERAL OIL/PETROLAT/WATER TOPICAL CREAM 113 GM JAR TP SCH ×2 (10:03→21:21)
[2019-04-30] MEDS: PHENYTOIN NA EXTENDED 100 MG CAPSULE (FP) PO SCH ×2 (10:03→21:19)
[2019-04-30] MEDS: PRENATAL VITAMINS W/ FOLIC ACID TABLET (FP) PO SCH (10:04)
[2019-04-30] MEDS: GABAPENTIN 400 MG CAPSULE (FP) PO SCH ×4 (10:04→21:21)
[2019-04-30] MEDS: levETIRAcetam XR 500 MG TAB PO SCH (10:04)
[2019-04-30] MEDS: NICOTINE 21 MG/24 HOURS TOPICAL PATCH TD SCH (10:05)
[2019-04-30] MEDS: NICOTINE POLACRILEX 2 MG GUM BC PRN (10:05)
[2019-04-30] MEDS: THIAMINE HCL 100 MG TABLET (FP) PO SCH (21:19)
[2019-04-30] MEDS: MELATONIN 5 MG TABLETS PO PRN (21:21)
[2019-05-01] MEDS: hydrOXYzine PAMOATE 50 MG CAPSULE (FP) PO PRN ×4 (06:38→21:14)
[2019-05-01] MEDS: CYCLOBENZAPRINE HCL 10 MG TABLET (FP) PO PRN ×2 (06:39→14:31)
[2019-05-01] MEDS ORDERED: PT OWN MED DRAWER 7, Y5N ONE (08:53)
[2019-05-01] MEDS: PHENYTOIN NA EXTENDED 100 MG CAPSULE (FP) PO SCH ×2 (10:04→21:14)
[2019-05-01] MEDS: PRENATAL VITAMINS W/ FOLIC ACID TABLET (FP) PO SCH (10:04)
[2019-05-01] MEDS: MINERAL OIL/PETROLAT/WATER TOPICAL CREAM 113 GM JAR TP SCH ×2 (10:05→21:14)
[2019-05-01] MEDS: GABAPENTIN 400 MG CAPSULE (FP) PO SCH ×4 (10:05→21:14)
[2019-05-01] MEDS: NICOTINE 21 MG/24 HOURS TOPICAL PATCH TD SCH (10:06)
[2019-05-01] MEDS: levETIRAcetam XR 500 MG TAB PO SCH (10:54)
[2019-05-01] MEDS: THIAMINE HCL 100 MG TABLET (FP) PO SCH (21:13)
[2019-05-01] MEDS: SUVOREXANT 20 MG TABLET PO PRN (21:14)
[2019-05-01] MEDS: MELATONIN 5 MG TABLETS PO PRN (21:16)
[2019-05-02] MEDS: hydrOXYzine PAMOATE 50 MG CAPSULE (FP) PO PRN ×4 (06:33→21:05)
[2019-05-02] MEDS: CYCLOBENZAPRINE HCL 10 MG TABLET (FP) PO PRN ×3 (06:34→21:05)
[2019-05-02] MEDS: PHENYTOIN NA EXTENDED 100 MG CAPSULE (FP) PO SCH ×2 (09:46→21:02)
[2019-05-02] MEDS: MINERAL OIL/PETROLAT/WATER TOPICAL CREAM 113 GM JAR TP SCH ×2 (09:46→21:02)
[2019-05-02] MEDS: levETIRAcetam XR 500 MG TAB PO SCH (09:46)
[2019-05-02] MEDS: NICOTINE POLACRILEX 2 MG GUM BC PRN (09:47)
[2019-05-02] MEDS: PRENATAL VITAMINS W/ FOLIC ACID TABLET (FP) PO SCH (09:47)
[2019-05-02] MEDS: GABAPENTIN 400 MG CAPSULE (FP) PO SCH ×4 (09:47→21:02)
[2019-05-02] MEDS: NICOTINE 21 MG/24 HOURS TOPICAL PATCH TD SCH (09:47)
[2019-05-02] MEDS: COLLOIDAL OATMEAL 1 BAR EACH TP PRN (10:49)
[2019-05-02] MEDS: THIAMINE HCL 100 MG TABLET (FP) PO SCH (21:02)
[2019-05-02] MEDS: SUVOREXANT 20 MG TABLET PO PRN (21:04)
[2019-05-02] MEDS: MELATONIN 5 MG TABLETS PO PRN (21:06)
[2019-05-03] MEDS: hydrOXYzine PAMOATE 50 MG CAPSULE (FP) PO PRN ×4 (06:31→21:35)
[2019-05-03] MEDS: CYCLOBENZAPRINE HCL 10 MG TABLET (FP) PO PRN ×3 (06:32→21:35)
[2019-05-03] MEDS ORDERED: PT OWN MED DRAWER 7, Y5N ONE (08:51)
[2019-05-03] MEDS: PHENYTOIN NA EXTENDED 100 MG CAPSULE (FP) PO SCH ×2 (10:15→21:35)
[2019-05-03] MEDS: PRENATAL VITAMINS W/ FOLIC ACID TABLET (FP) PO SCH (10:15)
[2019-05-03] MEDS: GABAPENTIN 400 MG CAPSULE (FP) PO SCH ×4 (10:15→21:34)
[2019-05-03] MEDS: levETIRAcetam XR 500 MG TAB PO SCH (10:15)
[2019-05-03] MEDS: NICOTINE 21 MG/24 HOURS TOPICAL PATCH TD SCH (10:17)
[2019-05-03] MEDS: MINERAL OIL/PETROLAT/WATER TOPICAL CREAM 113 GM JAR TP SCH ×2 (10:17→21:38)
[2019-05-03] MEDS: MELATONIN 5 MG TABLETS PO PRN (21:35)
[2019-05-03] MEDS: THIAMINE HCL 100 MG TABLET (FP) PO SCH (21:37)
[2019-05-04] MEDS: hydrOXYzine PAMOATE 50 MG CAPSULE (FP) PO PRN (06:24)
[2019-05-04] MEDS: CYCLOBENZAPRINE HCL 10 MG TABLET (FP) PO PRN (06:24)
[2019-05-04 07:11] VITALS: BP 131/89; PULSE 90; TEMP 97.9
[2019-05-04] MEDS ORDERED: PT OWN MED DRAWER 7, Y5N ONE (09:06)
--- NOTE | 2019-05-04 09:06 | DS ---
[facility] Rehab Discharge Summary - [facility] Rehab Discharge Summary Admission Date: 04/19/19 Discharge Date: 05/04/19 - History Present History: Alcohol dependence, Cannabis dependence, Cocaine dependence, Opioid dependence Additional Comments: Pt is a 28 y/o female with hx of FRANK admitted to rehab after detox treatment on and discharged today. Pt is referred back to [facility] for Cd aftercare. Pt reoprts she has primary care with Dr. Stanley Rod in [place], [place] for medical management and pt states she will call for an appointment after discharge to follow up. Pertinent Past History: Asthma Hx(Not on med) Seizure Disorder(on meds) Mood Disorder Insomnia - Discharge Physical Exam Vital Signs: Vital Signs Temperature 97.9 F 05/04/19 07:11 Pulse Rate 90 05/04/19 07:11 Respiratory Rate 18 05/04/19 07:11 Blood Pressure 131/89 05/04/19 07:11 O2 Sat by Pulse Oximetry (%) Alert o x 3 nad oob ambulating with steady gait cardiac:s1 s2,rrr lungs:cta,lauren. abdomen:soft,+bs,nt,nd extremities/skin:no edema,full ROM, multiple old healed laceration scars on back ;no open skin. Pertinent Admission Physical Exam Findings: Laboratory Tests 04/20/19 04/21/19 04/21/19 07:45 08:15 08:15 Phenytoin 5.7 Levetiracetam 4.2 L HIV 1&2 Antibody Screen Negative HIV P24 Antigen Negative - Treatment Discharge Condition: Discharge condition good Hospital Course: Rehabilitated safely and responded well. CD aftercare referral accepted to [facility] - Medication Discharge Medications: Ambulatory Orders Gabapentin [Neurontin -] 800 mg PO Q8H 7 Days #21 capsule 05/04/19 Phenytoin Na Extended [Dilantin -] 100 mg PO BID #60 capsule 05/04/19 levETIRAcetam [Levetiracetam -] 1,000 mg PO DAILY #30 tab.er.24h 05/04/19 - Medication-Assisted Treatment (MAT) Medication-Assisted Treatment (MAT): No - Discharge Instructions Diet, activity, other medical instructions: Diet:Regular Activity: oob ad charles Other medical instructions:Follow up with CD aftercare @ [facility] [address] [place]. Follow up with Dr. Stanley Rod on [address], [place] for medical management within 1 week after discharge. - Diagnosis (1) History of seizures Status: Chronic (2) Nicotine dependence Status: Chronic Qualifiers: Nicotine product type: cigarettes Substance use status: uncomplicated Qualified Code(s): F17.210 - Nicotine dependence, cigarettes, uncomplicated (3) Alcohol use disorder Status: Chronic (4) Opioid dependence Status: Chronic Qualifiers: Substance use status: uncomplicated Qualified Code(s): F11.20 - Opioid dependence, uncomplicated (5) Cocaine dependence, uncomplicated Status: Chronic (6) Cannabis dependence, uncomplicated Status: Chronic - Follow-up Referral Minutes to complete discharge: 25 - AMA Did Patient Leave Against Medical Advice: No Additional Comments: courtesy meds as above electronically sent to pt's preferred [place] pharmacy for picker packer..
[2019-05-04] MEDS: PRENATAL VITAMINS W/ FOLIC ACID TABLET (FP) PO SCH (09:44)
[2019-05-04] MEDS: PHENYTOIN NA EXTENDED 100 MG CAPSULE (FP) PO SCH (09:44)
[2019-05-04] MEDS: GABAPENTIN 400 MG CAPSULE (FP) PO SCH (09:46)
[2019-05-04] MEDS: levETIRAcetam XR 500 MG TAB PO SCH (09:46)
[2019-05-04] MEDS: MINERAL OIL/PETROLAT/WATER TOPICAL CREAM 113 GM JAR TP SCH (09:46)
[2019-05-04] MEDS: NICOTINE 21 MG/24 HOURS TOPICAL PATCH TD SCH (09:47)
== END 2019-05-04 10:08 | disposition home or self-care (01) | DRG 772 ==
LOC: YASAS 12:10 → Y3E 12:11
PROVIDERS: ADMIT Neuromusculoskeletal Medicine & OMM; ATTEND Neuromusculoskeletal Medicine & OMM
PROC: HZ42ZZZ Group Counseling for Substance Abuse Treatment, Cognitive-Behavioral (ICD-10-PCS; principal; 2019-04-19)
DX: F11.20 Opioid dependence, uncomplicated (principal); F10.10 Alcohol abuse, uncomplicated; F17.210 Nicotine dependence, cigarettes, uncomplicated; F19.280 Other psychoactive substance dependence with psychoactive substance-induced anxiety disorder; F19.282 Other psychoactive substance dependence with psychoactive substance-induced sleep disorder; F41.8 Other specified anxiety disorders; F32.9 Major depressive disorder, single episode, unspecified; G47.00 Insomnia, unspecified; L85.3 Xerosis cutis; Z91.018 Allergy to other foods
CPT/HCPCS: 36415; 80177; 80185; 87389